=== PATIENT | female | born 1935 | race Caucasian/White ===

== ENCOUNTER 2018-10-11 13:33 | Emergency (ER) | payer MEDICARE, OTHER, SELFPAY ==
[2018-10-11 13:33] VITALS: BP 182/103; PULSE 107; RESP 15; TEMP 37.3; O2SAT 97; BMI 21.8
--- NOTE | 2018-10-11 14:19 | ED.VISSUMM ---
- ER Visit Summary Date of Service: 10/11/18 Chief Complaint: [] blood per rectum while having urination and diarrhea History of Present Illness: The patient is a 83 F [] woke in usual state of health has history of cardiovascular disorder cardiac valve disease, aortic dissection with which she was called to shield around her aorta hepatitis B all of her health conditions have been stable she took Lasix she went to the bathroom to urinate she also had diarrhea this morning and when she was having diarrhea she noticed some blood per rectum, she packed her rectum the bleeding has stopped and she presents for evaluation, she has prior hemorrhoid surgery x2 she is never had a colonoscopy because she does not want one she is never vomited blood, no anticoagulants no history of GI bleeding, her hep B status is stable related to prior blood transfusions Physical Examination: [] 180/100 afebrile General, no distress resting comfortably HEENT is generally unremarkable The neck is supple no adenopathy Cardiovascular, regular rate and rhythm Lungs, clear bilateral Abdomen, soft nontender rectal shows brown stool nontender there is some dried blood over the buttocks but no active bleeding, the vaginal area shows no active bleeding or signs of old blood she assures me that was rectal bleeding not bleeding and she cannot reproduce the bleeding now Extremities, no clubbing cyanosis or edema Neurologic, awake alert answering questions appropriately moving all 4 extremities Test Results: [] Emergency Department Course and Treatment: [] All the above will obtain screening labs she assures me she is not bleeding now and I cannot identify any source of bleeding Treatment Plan: [] Screening labs unremarkable, during her stay in the emerge from there is been no further bleeding she actually went to the bathroom and use the restroom without any difficulty whatsoever she wants to go home we again discussed the concept of colonoscopy bleeding, colon cancer, she is absolutely not interested not saying that she has had extensive cardiovascular surgery and does not wish to have any further procedures Disposition: [] Home stable Impression: [] Rectal bleeding resolved This note was generated with [employer] dictation software. It may contain incorrect words, spelling, and punctuation that were not noted in review of the chart prior to signing ED Disposition - Plan for ED Patient: Referrals: Porfirio Osei MD [COURTESY STAFF PHYSICIAN] -
[2018-10-11 14:38] LABS: Absolute Lymphocyte Count 1.23 X10^3/ul (0.83-4.51); Absolute Neutrophil Count 3.2 X10^3/uL (2.0-7.7); Basophil# 0.04 X10^3/uL; Basophil% 0.9 % (0-1); Eosinophil# 0.27 X10^3/uL; Eosinophils% 5.8 % (0-5); Hematocrit 37.5 % (37-47); Hemoglobin 13.1 g/dl (12.0-15.0); Lymphocyte # 1.23 X10^3/ul (4.0); Lymphocyte % 26.2 % (19-41); Mean Corp Hgb Conc 34.9 g/gl (32-36); Mean Corpuscular Hgb 31.4 pg (27.0-32.0); Mean Corpuscular Volume 89.9 fL (81-99); Mean Platelet Vol. 10.3 fl (6.2-12.0); Neutrophil # 3.15 X10^3/uL (2.7-7.7); Neutrophil % 67.1 % (47-70); POSITIVE COUNT NO; POSITIVE DIFFERENTIAL NO; POSITIVE MORPHOLOGY NO; Platelet Count 140 K/mm3 (150-450); RBC Distribution Width CV 13.3 % (11.6-14.6); RBC Distribution Width SD 43.4 fl (35.1-43.9); Red Blood Count 4.17 M/mm3 (4.2-5.4); White Blood Count 4.7 K/mm3 (4.4-11.0)
[2018-10-11 14:50] LABS: International Normalized Ratio 1.1; Prothrombin Time (Protime)PT. 14.4 SECONDS (11.7-14.9)
[2018-10-11 14:53] LABS: AST(SGOT) 42 U/L (15-37); Alanine Aminotransfer ALT/SGPT 39 U/L (13-56); Albumin, Serum 4.6 g/dL (3.2-5.0); Alkaline Phosphatase 79 U/L (45-117); Anion Gap 6 (5-15); BUN 25 mg/dL (7-18); BUN/Creat Ratio 19.8 RATIO (10-20); Bilirubin, Direct 0.21 mg/dL (0.00-0.30); Calcium,Total 9.2 mg/dL (8.5-10.1); Chloride 94 mmol/L (98-107); Creatinine, Serum 1.26 mg/dL (0.55-1.02); EST Glomerular Filtration Rate 43 mL/min (>60); Est Glom Filt Rate - Afr Amer 52 mL/min (>60); Estimated Creatinine Clearance 32.78 ml/min; Globulin 2.7 g/dL (2.2-4.2); Glucose 88 mg/dL (74-106); Potassium 4.1 mmol/L (3.5-5.1); Protein, Total 7.3 g/dL (6.4-8.2); Sodium Level 132 mmol/L (136-145)
--- NOTE | 2018-10-11 15:06 | ED.DEP ---
ED Disposition - Plan for ED Patient: Instructions: ED Hemorrhoids, ED Hematochezia Stable Referrals: Porfirio Osei MD [COURTESY STAFF PHYSICIAN] -
[2018-10-11 15:15] VITALS: BP 156/73; PULSE 92; RESP 16; O2SAT 97
== END 2018-10-11 15:20 | disposition home or self-care (01) ==
LOC: ED 14:40
PROVIDERS: Emergency Provider Emergency Medicine; Family Provider Nurse Practitioner Family; PCP Nurse Practitioner Family
DX: K62.5 Hemorrhage of anus and rectum (principal); B19.10 Unspecified viral hepatitis B without hepatic coma
CPT/HCPCS: 80048; 80076; 85025; 85610; 96360; 99283; J7040

== ENCOUNTER 2018-10-26 18:15 | Emergency (ER) | payer MEDICARE, OTHER, SELFPAY ==
[2018-10-26 18:18] VITALS: BP 165/81; PULSE 106; RESP 18; TEMP 36.7; O2SAT 94; BMI 22.3
[2018-10-26 19:44] LABS: Partial Thromboplast Time 30.7 Seconds (24.1-36.2); Prothrombin Time (Protime)PT. 13.1 SECONDS (11.7-14.9)
[2018-10-26 19:48] LABS: Anion Gap 7 (5-15); BUN 39 mg/dL (7-18); BUN/Creat Ratio 28.3 RATIO (10-20); Chloride 93 mmol/L (98-107); Creatinine, Serum 1.38 mg/dL (0.55-1.02); EST Glomerular Filtration Rate 39 mL/min (>60); Est Glom Filt Rate - Afr Amer 47 mL/min (>60); Estimated Creatinine Clearance 28.77 ml/min; Glucose 115 mg/dL (74-106); Potassium 4.3 mmol/L (3.5-5.1); Sodium Level 125 mmol/L (136-145)
[2018-10-26 19:51] LABS: Absolute Lymphocyte Count 0.27 X10^3/ul (0.83-4.51); Absolute Neutrophil Count 6.1 X10^3/uL (2.0-7.7); Hematocrit 34.5 % (37-47); Hemoglobin 11.9 g/dl (12.0-15.0); Lymphocyte # 0.27 X10^3/ul (4.0); Mean Corp Hgb Conc 34.5 g/gl (32-36); Mean Corpuscular Hgb 31.2 pg (27.0-32.0); Mean Corpuscular Volume 90.3 fL (81-99); Mean Platelet Vol. 11.4 fl (6.2-12.0); Monocyte% 4.5 % (0-10); Neutrophil # 6.08 X10^3/uL (2.7-7.7); Neutrophil % 90.9 % (47-70); Platelet Count 152 K/mm3 (150-450); RBC Distribution Width CV 13.4 % (11.6-14.6); Red Blood Count 3.82 M/mm3 (4.2-5.4); White Blood Count 6.7 K/mm3 (4.4-11.0)
[2018-10-26 19:52] LABS: Differential Indicated SCAN CRITERIA MET; POSITIVE COUNT NO; POSITIVE DIFFERENTIAL YES; POSITIVE MORPHOLOGY NO
[2018-10-26 20:23] LABS: Differential Comment SCANNED
--- NOTE | 2018-10-26 21:42 | ED.VISSUMM ---
- ER Visit Summary Date of Service: 10/26/18 Chief Complaint: Left leg bruising History of Present Illness: The patient is a 83 F who presents with bruising to her left leg that has been getting worse over the past few days. Patient states she does have some pain with palpation to the lateral aspect of her left leg. Patient denies any paresthesias or weakness. Patient denies any other pain. Patient denies any pain with ambulation. Patient denies any trauma or injury. Patient denies any fevers or chills. Physical Examination: Vital signs are stable. Patient is afebrile. Patient is in no acute distress. Oral mucosa is pink and moist. Neck is supple. Trachea is midline. There is no JVD noted. Musculoskeletal exam reveals ecchymosis over the left lower leg and left knee area. There is some mild tenderness on the lateral aspect of the left lower leg. There is no bony crepitance or step-off. There is full range of motion. Patient is able to ambulate without difficulty. Sensation was intact to light touch in all digits. Capillary refill was less than 2 seconds in all digits. Pedal pulses are equal bilateral. There is no pallor noted. Test Results: CBC showed a mild anemia with a hemoglobin of 11.9. Basic metabolic profile showed a sodium of 125 and chloride of 93. Patient states these are always low. I was going to order a liter of normal saline however the patient refused. INR was 1.0. Emergency Department Course and Treatment: Patient was advised of her test results. Patient was instructed to elevate her left leg. Patient was instructed to follow-up with her primary care physician in 5 to 7 days. Patient understood and was agreeable with the plan. All questions were answered. Disposition: Discharge home Impression: Left leg ecchymosis This note was generated with [employer] dictation software. It may contain incorrect words, spelling, and punctuation that were not noted in review of the chart prior to signing ED Disposition - Plan for ED Patient: Disposition: Home or Assisted Living Diagnosis: Spontaneous ecchymosis Instructions: ED Contusion Soft Tissue Referrals: Juhi Pope NP-C [Primary Care Provider] - 5-7 Days
--- NOTE | 2018-10-26 21:46 | ED.DCSUM_ITS ---
- ER Visit Summary Date of Service: 10/26/18 Chief Complaint: Left leg bruising History of Present Illness: The patient is a 83 F who presents with bruising to her left leg that has been getting worse over the past few days. Patient states she does have some pain with palpation to the lateral aspect of her left leg. Patient denies any paresthesias or weakness. Patient denies any other pain. Patient denies any pain with ambulation. Patient denies any trauma or injury. Patient denies any fevers or chills. Physical Examination: Vital signs are stable. Patient is afebrile. Patient is in no acute distress. Oral mucosa is pink and moist. Neck is supple. Trachea is midline. There is no JVD noted. Musculoskeletal exam reveals ecchymosis over the left lower leg and left knee area. There is some mild tenderness on the lateral aspect of the left lower leg. There is no bony crepitance or step- off. There is full range of motion. Patient is able to ambulate without difficulty. Sensation was intact to light touch in all digits. Capillary refill was less than 2 seconds in all digits. Pedal pulses are equal bilateral. There is no pallor noted. Test Results: CBC showed a mild anemia with a hemoglobin of 11.9. Basic metabolic profile showed a sodium of 125 and chloride of 93. Patient states these are always low. I was going to order a liter of normal saline however the patient refused. INR was 1.0. Emergency Department Course and Treatment: Patient was advised of her test results. Patient was instructed to elevate her left leg. Patient was instructed to follow-up with her primary care physician in 5 to 7 days. Patient understood and was agreeable with the plan. All questions were answered. Disposition: Discharge home Impression: Left leg ecchymosis This note was generated with [employer] dictation software. It may contain incorrect words, spelling, and punctuation that were not noted in review of the chart prior to signing ED Disposition - Plan for ED Patient: Disposition: Home or Assisted Living Diagnosis: Spontaneous ecchymosis Instructions: ED Contusion Soft Tissue Referrals: Juhi Pope NP-C [Primary Care Provider] - 5-7 Days
[2018-10-26 22:00] VITALS: BP 136/86; PULSE 86; RESP 16; O2SAT 98
--- NOTE | 2018-10-26 22:01 | ED.RN ---
IV site removed. Dressing placed. Bleeding and bruising noted around site. New dressing placed on patient. Wrap applied with presser at this time. Bleeding controlled now
== END 2018-10-26 22:05 | disposition home or self-care (01) ==
PROVIDERS: Emergency Provider Emergency Medicine; Family Provider Nurse Practitioner Family; PCP Nurse Practitioner Family
DX: R23.3 Spontaneous ecchymoses (principal)
CPT/HCPCS: 80048; 85025; 85610; 85730; 99283; A4216

== ENCOUNTER 2018-11-14 11:17 | Emergency (ER) | payer MEDICARE, OTHER, SELFPAY ==
[2018-11-14] VITALS (10 sets, daily range): BP systolic 117–191; BP diastolic 74–95; PULSE 88–115; RESP 13–26; TEMP 36.7; O2SAT 96–99; BMI 23.2
--- NOTE | 2018-11-14 11:30 | EKG12_ITS ---
Test Reason : ABNL PAIN Blood Pressure : / mmHG Vent. Rate : 096 BPM Atrial Rate : 090 BPM P-R Int : 000 ms QRS Dur : 126 ms QT Int : 372 ms P-R-T Axes : 000 -64 087 degrees QTc Int : 469 ms Atrial fibrillation Left axis deviation Left ventricular hypertrophy with QRS widening Cannot rule out Septal infarct , age undetermined Abnormal ECG Confirmed by KATHLEEN ERNANDEZ ([id number]), editor book AKBAR WHALEN ([id number]) on 11/22/2018 9:23:29 AM Referred By: Ant Allen Confirmed By:KATHLEEN ERNANDEZ
[2018-11-14] MEDS: Esmolol 2,500 MG/250 ML IV.SOLN. 18.99 MG CONT INF (11:41)
[2018-11-14] MEDS: Ondansetron 4 MG/2 ML Vial IV (11:43)
[2018-11-14] MEDS: Morphine 4 MG/ML Syringe IV (11:43)
[2018-11-14 11:47] LABS: Absolute Lymphocyte Count 0.84 X10^3/ul (0.83-4.51); Absolute Neutrophil Count 4.8 X10^3/uL (2.0-7.7); Basophil# 0.03 X10^3/uL; Basophil% 0.4 % (0-1); Eosinophil# 0.35 X10^3/uL; Eosinophils% 5.2 % (0-5); Hematocrit 32.4 % (37-47); Hemoglobin 10.8 g/dl (12.0-15.0); Lymphocyte # 0.84 X10^3/ul (4.0); Lymphocyte % 12.6 % (19-41); Mean Corp Hgb Conc 33.3 g/gl (32-36); Mean Corpuscular Hgb 32.1 pg (27.0-32.0); Mean Corpuscular Volume 96.4 fL (81-99); Mean Platelet Vol. 11.3 fl (6.2-12.0); Monocyte# 0.66 X10^3/uL; Monocyte% 9.9 % (0-10); Neutrophil # 4.77 X10^3/uL (2.7-7.7); Neutrophil % 71.6 % (47-70); Platelet Count 147 K/mm3 (150-450); RBC Distribution Width CV 15.9 % (11.6-14.6); RBC Distribution Width SD 52.6 fl (35.1-43.9); Red Blood Count 3.36 M/mm3 (4.2-5.4); White Blood Count 6.7 K/mm3 (4.4-11.0)
[2018-11-14 11:48] LABS: POSITIVE COUNT NO; POSITIVE DIFFERENTIAL NO; POSITIVE MORPHOLOGY NO
--- NOTE | 2018-11-14 11:58 | ED.RN ---
FAMILY AND PATIENT VERY ADAMANT THAT PT IS A DO NOT RESUSCITATE. OBTAINING COPIES FROM FAMILY PHYSICIAN.
[2018-11-14 12:19] LABS: ALB/GLOB Ratio 1.4 RATIO (0.9-2.4); AST(SGOT) 38 U/L (15-37); Alanine Aminotransfer ALT/SGPT 30 U/L (13-56); Albumin, Serum 3.8 g/dL (3.2-5.0); Alkaline Phosphatase 77 U/L (45-117); Anion Gap 6 (5-15); BUN 19 mg/dL (7-18); BUN/Creat Ratio 18.3 RATIO (10-20); Calcium,Total 8.9 mg/dL (8.5-10.1); Chloride 98 mmol/L (98-107); Creatinine, Serum 1.04 mg/dL (0.55-1.02); EST Glomerular Filtration Rate 54 mL/min (>60); Est Glom Filt Rate - Afr Amer 65 mL/min (>60); Estimated Creatinine Clearance 38.18 ml/min; Globulin 2.8 g/dL (2.2-4.2); Glucose 81 mg/dL (74-106); Potassium 3.6 mmol/L (3.5-5.1); Protein, Total 6.6 g/dL (6.4-8.2); Sodium Level 133 mmol/L (136-145)
[2018-11-14 12:23] LABS: Partial Thromboplast Time 32.3 Seconds (24.1-36.2); Prothrombin Time (Protime)PT. 13.4 SECONDS (11.7-14.9)
--- NOTE | 2018-11-14 12:40 | ED.VISSUMM ---
- ER Visit Summary Date of Service: 11/14/18 Chief Complaint: Left leg swollen and bruised History of Present Illness: The patient is a [address] Pope and Dr. Allen. She reports that her left leg has been bruised and swollen since October 26. States that she has an aching pain that is mild currently and severe with walking. Is relieved by elevation. She denies any injury to the area. She states that she had a Doppler that was negative and followed up with Dr. Allen yesterday for further evaluation. She was sent for a CTA of the chest today which showed a dissection and she was sent to the emergency department for stabilization and transfer. Patient reports that she does have a history of a thoracic aortic aneurysm repair and dissection in 1996. This was done at [facility]. She reports that this did extend up into her carotids. She is unsure how far this went inferiorly. Patient denies any chest or abdominal pain. She denies any numbness or weakness in her leg. She has had no fever or chills. Physical Examination: Vitals: 98.1, 191/95, 115, 16, 97% on room air which is not hypoxic. General: Well-nourished and well-developed. Head: Normocephalic atraumatic. Neck: Supple, no lymphadenopathy. No JVD. Nontender. Cardiovascular: Tachycardic irregular rhythm with a 2 out of 6 systolic murmur Respiratory: No respiratory distress. Clear to auscultation bilaterally. Abdominal: Soft, nontender, nondistended, normal bowel sounds. No guarding, rebound, or peritoneal signs. Back: Nontender. Extremities: 3+ edema of her left leg and ecchymosis that extends from her toes all the way up to the mid thigh. I am unable to palpate a dorsalis pedis pulse bilaterally. However, she has normal sensation light touch. Her left leg is not cold. Skin: Normal color, no rash. Neurologic: Alert and oriented ?3. Cranial nerves II through XII are intact. Normal strength and sensation. Psych: Normal affect. Test Results: EKG is A. fib at 96 with no ischemic changes. CBC shows an H&H of 10.8 and 32.4, platelets of 147, segmented neutrophils of 73, lymphocytes of 13. Chem-7 shows a sodium 133, BUN of 19, creatinine 1.04. LFTs showed a total bili 1.1 and AST of 38. Coags are normal. CT was read as a [place] type a dissecting aneurysm that has progressed compared to prior study. Thrombosis of the left common iliac artery. Emergency Department Course and Treatment: Patient was given a dose of morphine to help bring her blood pressure down. Again she denied pain. She was started on esmolol and nitrite IV. Treatment Plan: The patient was discussed with Dr. Johnson, at [facility]. We did discuss the possibility of a acute on chronic dissection. He does not want her anticoagulated at this time. He would like her heart rate to be as low as we can get it. He would like us to aim for a systolic blood pressure of 140. The patient will be transferred by air to [facility] for further evaluation and treatment. I did discuss with her that if she has an ischemic leg and/or an aortic dissection that this could require immediate surgery and I feel that there is urgency that does require air transport. Disposition: Transferred in improved condition. Impression: 1. Aortic dissection. 2. Atrial fibrillation with RVR. 3. Critical care time 30 minutes. This note was generated with [employer] dictation software. It may contain incorrect words, spelling, and punctuation that were not noted in review of the chart prior to signing ED Disposition - Plan for ED Patient: Referrals: Juhi Pope NP-C [Primary Care Provider] -
--- NOTE | 2018-11-14 12:45 | ED.DCSUM_ITS ---
- ER Visit Summary Date of Service: 11/14/18 Chief Complaint: Left leg swollen and bruised History of Present Illness: The patient is a [address] Pope and Dr. Allen. She reports that her left leg has been bruised and swollen since October 26. States that she has an aching pain that is mild currently and severe with walking. Is relieved by elevation. She denies any injury to the area. She states that she had a Doppler that was negative and followed up with Dr. Allen yesterday for further evaluation. She was sent for a CTA of the chest today which showed a dissection and she was sent to the emergency department for stabilization and transfer. Patient reports that she does have a history of a thoracic aortic aneurysm repair and dissection in 1996. This was done at [facility]. She reports that this did extend up into her carotids. She is unsure how far this went inferiorly. Patient denies any chest or abdominal pain. She denies any numbness or weakness in her leg. She has had no fever or chills. Physical Examination: Vitals: 98.1, 191/95, 115, 16, 97% on room air which is not hypoxic. General: Well-nourished and well-developed. Head: Normocephalic atraumatic. Neck: Supple, no lymphadenopathy. No JVD. Nontender. Cardiovascular: Tachycardic irregular rhythm with a 2 out of 6 systolic murmur Respiratory: No respiratory distress. Clear to auscultation bilaterally. Abdominal: Soft, nontender, nondistended, normal bowel sounds. No guarding, rebound, or peritoneal signs. Back: Nontender. Extremities: 3+ edema of her left leg and ecchymosis that extends from her toes all the way up to the mid thigh. I am unable to palpate a dorsalis pedis pulse bilaterally. However, she has normal sensation light touch. Her left leg is not cold. Skin: Normal color, no rash. Neurologic: Alert and oriented ?3. Cranial nerves II through XII are intact. Normal strength and sensation. Psych: Normal affect. Test Results: EKG is A. fib at 96 with no ischemic changes. CBC shows an H&H of 10.8 and 32.4, platelets of 147, segmented neutrophils of 73, lymphocytes of 13. Chem-7 shows a sodium 133, BUN of 19, creatinine 1.04. LFTs showed a total bili 1.1 and AST of 38. Coags are normal. CT was read as a [place] type a dissecting aneurysm that has progressed compared to prior study. Thrombosis of the left common iliac artery. Emergency Department Course and Treatment: Patient was given a dose of morphine to help bring her blood pressure down. Again she denied pain. She was started on esmolol and nitrite IV. Treatment Plan: The patient was discussed with Dr. Johnson, at [facility]. We did discuss the possibility of a acute on chronic dissection. He does not want her anticoagulated at this time. He would like her heart rate to be as low as we can get it. He would like us to aim for a systolic blood pressure of 140. The patient will be transferred by air to [facility] for further evaluation and treatment. I did discuss with her that if she has an ischemic leg and/or an aortic dissection that this could require immediate surgery and I feel that there is urgency that does require air transport. Disposition: Transferred in improved condition. Impression: 1. Aortic dissection. 2. Atrial fibrillation with RVR. 3. Critical care time 30 minutes. This note was generated with [employer] dictation software. It may contain incorrect words, spelling, and punctuation that were not noted in review of the chart prior to signing ED Disposition - Plan for ED Patient: Referrals: Juhi Pope NP-C [Primary Care Provider] -
== END 2018-11-14 13:01 | disposition short-term general hospital (02) ==
PROVIDERS: Emergency Provider Emergency Medicine; Family Provider Nurse Practitioner Family; PCP Nurse Practitioner Family
DX: I71.00 Dissection of unspecified site of aorta (principal); I71.6 Thoracoabdominal aortic aneurysm, without rupture; I48.91 Unspecified atrial fibrillation; J44.9 Chronic obstructive pulmonary disease, unspecified; I10 Essential (primary) hypertension; Z86.73 Personal history of transient ischemic attack (TIA), and cerebral infarction without residual deficits; Z79.51 Long term (current) use of inhaled steroids; Z79.899 Other long term (current) drug therapy
CPT/HCPCS: 71275; 80053; 85025; 85610; 85730; 93005; 96365; 96366; 96368; 96375; 99285; J7040; Q9967; A4216; J2405

== ENCOUNTER → 2018-11-14 | Outpatient (CLI) | payer MEDICARE, OTHER, SELFPAY ==
[2018-10-26 18:18] VITALS: BMI 22.3
--- NOTE | 2018-11-14 09:42 | CT_ITS ---
STUDY: CTA CHEST REASON FOR EXAM: Female, 83 years old. History of thoracic aortic aneurysm. Swelling of the left foot. RADIATION DOSAGE (If Supplied By Facility): CTDIvol = ( 19.59 ) mGy, DLP = ( 374.16 ) mGycm TECHNIQUE: The examination was performed with the intravenous administration of 75CC IV Isovue 370. Post-processing of the angiographic images was performed, with multiplanar reformation and 3D reconstruction. Individualized dose optimization techniques were used for this CT. COMPARISON: Comparison is made with prior examination date February 23, 2005. FINDINGS: Normal enhancement of the main pulmonary artery and right and left pulmonary arteries. Normal enhancement of the bilateral peripheral pulmonary arteries. There is no demonstrated pulmonary embolism. There is evidence of a [place] type A aortic dissection arising from the distal portion of the descending thoracic aorta down to the abdomen. There is evidence of dissection into the right brachiocephalic artery and subclavian vein. There is evidence of a false and true lumen with opacification. The aortic arch is dilated measuring 5.6 cm in transverse dimension. This has progressed as compared to prior study. There is evidence of a thrombus within the aneurysmal dilatation. There is dense calcification of the wall. There is evidence of prior surgical repair. There is dilatation of the descending thoracic aorta measuring 4.1 cm in transverse dimension. There is opacification of the true and false lumina. The dissection extends into the abdominal aorta and iliac arteries. The right common iliac artery is occluded. Normal heart and pericardium. Normal mediastinum. Normal hilar regions. Normal visualized trachea and bronchi. The lungs are well expanded. Mild degree of emphysematous changes. Normal pleura. Normal chest wall structures. There are degenerative changes of thoracic spine. Multiple gallstones. Atrophy of the right kidney. 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 This has progressed as compared to prior study. 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 Electronically Signed: Thong Almaraz, at 10:49 EDT , Service support ,
== END | disposition home or self-care (01) ==
LOC: CT 09:36
PROVIDERS: Family Provider Nurse Practitioner Family; PCP Nurse Practitioner Family; Referring Provider Internal Medicine Hematology & Oncology; Visit Provider Internal Medicine Hematology & Oncology
DX: I71.6 Thoracoabdominal aortic aneurysm, without rupture (principal)
CPT/HCPCS: 71275; Q9967; A4216

== ENCOUNTER 2020-05-24 09:53 | Emergency (ER) | payer MEDICARE, OTHER, SELFPAY ==
[2018-11-14 11:18] VITALS: BMI 23.2
[2020-05-24 09:55] VITALS: BP 144/75; PULSE 105; RESP 20; TEMP 36.6; O2SAT 98; BMI 22.1
--- NOTE | 2020-05-24 10:16 | RAD_ITS ---
STUDY: X-RAY CHEST REASON FOR EXAM: Female, 85 years old. hx of COPD, some coughing TECHNIQUE: Single AP portable view of the chest. COMPARISON: CTA chest dated 11/14/2018 FINDINGS: There is hyperinflation of the lungs consistent with chronic obstructive lung disease (COPD). Lungs are clear. There is no demonstrated pleural abnormality. Sternal cerclage wires are present from a prior sternotomy. Mild cardiomegaly. Normal mediastinum and kendy. Normal visualized pulmonary arteries. Tortuous aorta with fusiform aneurysm of the aortic knob. Normal visualized thoracic spine. Normal visualized ribs, clavicles, and shoulders. There is no demonstrated abnormality of the visualized soft tissue structures of the upper abdomen. RAD/Chest 1 View (Portable) IMPRESSION: COPD without acute cardiopulmonary disease. Electronically Signed: Jasapl Henry DO at 11:17 EST Tel , Service support ,
--- NOTE | 2020-05-24 10:16 | EKG12_ITS ---
Test Reason : COUGH Blood Pressure : / mmHG Vent. Rate : 100 BPM Atrial Rate : 125 BPM P-R Int : 000 ms QRS Dur : 122 ms QT Int : 364 ms P-R-T Axes : 000 -68 087 degrees QTc Int : 469 ms Atrial fibrillation Left anterior fascicular block Left ventricular hypertrophy with QRS widening Anteroseptal infarct , age undetermined Abnormal ECG Confirmed by DESHAUN ARRIAGA MD ([id number]), telegraph editor AKBAR WHALEN ([id number]) on 05/26/2020 9:17:49 AM Referred By: SANDY Confirmed By:DESHAUN ARRIAGA MD
--- NOTE | 2020-05-24 10:19 | ED.VIS.GEN ---
History of Present Illness Chief Complaint: Cough Informant: Patient Narrative: 85-year-old female with history of hypertension, COPD, CHF presenting with some dyspnea. She states that she was exposed to someone with Covid at [facility] 1 week ago. He states he has had a fever of 98 however her temperature is usually 95. She did not have any loss of taste or smell. She has no body aches. She has a dry slight cough. She has some slight dyspnea. She has no lower extremity swelling. She denies having any chest pain. On physical exam her lungs are clear to auscultation and there is no wheezing. She has good air movement. She does not have any chest pain but because of the dyspnea I did obtain an EKG. This shows A. fib at 100 bpm. She states she did not know she had a history of atrial fibrillation although she has a EKG from November 14, 2018 which shows A. fib. When resting her heart rate is around 80. She states she does not know why she is not on a blood thinner, however on researching her she has history of aortic dissection and carotid dissections. Lab work does show that she is leukopenic and lymphopenic however she is always in this range. She has acute on chronic kidney disease as well. She states that her doctor keeps talking to her about her kidneys but she does not have time to see her on a regular basis. When I asked what her problem with her kidneys as she says I do not know. Troponin was negative. Electrolytes are normal. She had a D-dimer of greater than 3 so I did CTA her chest and gave her IV fluids. The CTA of the chest is documented above and there are no acute findings. She is Covid negative. I spoke with Evgeny Villavicencio who is on-call for Ju[facility] Samuel nurse practitioner. I recommended that she get close follow-up for her kidneys. He stated to have her call the office tomorrow. I did review all the findings with him and he felt comfortable sending her home as well. Impression: 1. Dyspnea 2. Cough 3. Acute on chronic renal disease Past Medical History - Allergies and Home Meds Allergies/Adverse Reactions: Allergies atenolol Allergy (Verified 05/24/20 09:57) Unknown cephalexin [From Keflex] Allergy (Verified 05/24/20 09:57) Unknown ciprofloxacin [From Cipro] Allergy (Verified 05/24/20 09:57) Unknown fluticasone [From Advair Diskus] Allergy (Verified 05/24/20 09:57) Hives Penicillins [PCN] Allergy (Verified 05/24/20 09:57) Unknown salmeterol [From Advair Diskus] Allergy (Verified 05/24/20 09:57) Hives Primary Care Physician: Juhi Pope CLINICAL OFFICE TECHNICIAN, CLINICAL OFFICE TECHNICIAN-C [Primary Care Provider] - Prior records reviewed: Yes Past Medical History: - - COPD, CHF, hypertension, osteoporosis Surgical History: noncontributory Lives: Alone Smoking Status: Never smoker Alcohol: None Drugs: None Review of Systems General: Denies: Chills, Fever, Sweats Eyes: Denies: Visual changes - bilaterally, Diplopia ENT: Denies: Rhinorrhea, Sore throat Cardiovascular: Denies: Chest pain, Palpitations Respiratory: Reports: Dyspnea, Cough. Denies: Sputum Gastrointestinal: Denies: Abdominal pain, Nausea, Vomiting Genitourinary: Denies: Dysuria, Hematuria Musculoskeletal: Denies: Myalgias, Arthralgias Skin: Denies: Rash, Abscess Neurological: Denies: Headache, Parasthesia, Numbness Psych: Denies: Depression, Anxiety Physical Exam Vital Signs/Narrative: Vital Signs Temp Pulse Resp BP Pulse Ox 05/24/20 09:55 97.9 F 105 H 20 H 144/75 H 98 Inital Vital Signs reviewed: Yes General: No Acute Distress Eyes: Perrl, EOMI. Negative for: Pale conjunctiva ENT: Moist mucous membranes, No rhinorrhea Cardiovascular: Regular rate, Regular rhythm Abdomen: Soft, Nontender, Nondistended Extremities: Nontender, No edema Skin: Normal color, No rash. Negative for: Cyanosis Neurological: Alert, Oriented x3 Psychological: Normal affect, Normal Mood Diagnostic/Tx/Re-eval Clinical Impression(s) from Imaging Studies Chest X-Ray 05/24/20 10:16 IMPRESSION: COPD without acute cardiopulmonary disease. Electronically Signed: Jaspal Henry DO at 11:17 EST Tel , Service support , Chest CTA 05/24/20 11:35 IMPRESSION: 1. No evidence of pulmonary embolism or acute cardiopulmonary process. 2. 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 Recommend continued Counselor with cardiothoracic surgery as clinically warranted. 3. 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 Electronically Signed: Henrik Castillo, DO at 12:30 EST , Service support , Laboratory Data 05/24/20 05/24/20 05/24/20 10:30 10:30 10:30 WBC 7.5 RBC 3.72 L Hgb 12.2 Hct 34.5 L MCV 92.7 MCH 32.8 H MCHC 35.4 RDW Std Deviation 43.5 RDW Coeff of Carmen 12.8 Plt Count 161 MPV 10.9 Immature Gran % (Auto) 0.500 Neut % (Auto) 78.9 H Lymph % (Auto) 8.0 L Grady % (Auto) 9.5 Eos % (Auto) 2.4 Baso % (Auto) 0.7 Absolute Neuts (auto) 5.9 Absolute Lymphs (auto) 0.60 L Nucleated RBC % 0 Platelet Estimate ADEQUATE RBC Morphology NORM C+C D-Dimer Quant (PE/DVT) 3.05 H* Sodium 131 L Potassium 3.6 Chloride 95 L Carbon Dioxide 30.0 Anion Gap 6 BUN 29 H Creatinine 1.43 H Estim Creat Clear Calc 26.82 Est GFR (MDRD) Af Amer 45 L Est GFR (MDRD) Non-Af 37 L BUN/Creatinine Ratio 20.3 H Glucose 103 Calcium 9.7 Troponin I < 0.015 B-Natriuretic Peptide 05/24/20 10:30 WBC RBC Hgb Hct MCV MCH MCHC RDW Std Deviation RDW Coeff of Carmen Plt Count MPV Immature Gran % (Auto) Neut % (Auto) Lymph % (Auto) Grady % (Auto) Eos % (Auto) Baso % (Auto) Absolute Neuts (auto) Absolute Lymphs (auto) Nucleated RBC % Platelet Estimate RBC Morphology D-Dimer Quant (PE/DVT) Sodium Potassium Chloride Carbon Dioxide Anion Gap BUN Creatinine Estim Creat Clear Calc Est GFR (MDRD) Af Amer Est GFR (MDRD) Non-Af BUN/Creatinine Ratio Glucose Calcium Troponin I B-Natriuretic Peptide 162.6 H - Rhythm Strip Rhythm Strip: A-fib Rate: 100 - EKG Initial EKG Interpretation: Atrial Fibrillation Prior: Unchanged - Medical Decision Making 85-year-old female presenting with shortness of breath. She states she was concerned that she might of contracted Covid?19 from somebody who tested positive at [facility] a week ago. She has not had a fever that she knows of. She has no myalgias. She has no change in taste or smell. She states he has a history of CHF and COPD. ED Disposition - Plan for ED Patient: Disposition: Home or Assisted Living Instructions: ED Dyspnea, Kidney Problems Referrals: Juhi Pope NP, CLINICAL OFFICE TECHNICIAN-C [Primary Care Provider] -
[2020-05-24 10:39] VITALS: BP 126/75; PULSE 102; RESP 20; TEMP 36.6; O2SAT 95
[2020-05-24 10:41] LABS: Absolute Neutrophil Count 5.9 X10^3/uL (2.0-7.7); Basophil# 0.05 X10^3/uL; Basophil% 0.7 % (0-1); Differential Indicated SCAN CRITERIA MET; Eosinophil# 0.18 X10^3/uL; Eosinophils% 2.4 % (0-5); Hematocrit 34.5 % (37-47); Hemoglobin 12.2 g/dL (12.0-15.0); Mean Corp Hgb Conc 35.4 g/dL (32-36); Mean Corpuscular Hgb 32.8 pg (27.0-32.0); Mean Corpuscular Volume 92.7 fL (81-99); Mean Platelet Vol. 10.9 fl (6.2-12.0); Monocyte# 0.71 X10^3/uL; Monocyte% 9.5 % (0-10); NRBC Flagged by Analyzer 0 % (0-5); Neutrophil # 5.88 X10^3/uL (2.7-7.7); Neutrophil % 78.9 % (47-70); POSITIVE DIFFERENTIAL YES; Platelet Count 161 K/mm3 (150-450); RBC Distribution Width CV 12.8 % (11.6-14.6); RBC Distribution Width SD 43.5 fl (35.1-43.9); Red Blood Count 3.72 M/mm3 (4.2-5.4); White Blood Count 7.5 K/mm3 (4.4-11.0)
[2020-05-24 10:52] LABS: D-Dimer Quantitative (DVT/PE) 3.05 FEU/ug/m (0.27-0.49)
--- NOTE | 2020-05-24 10:55 | NURSING ---
Critical Ddimer reported to Dr. Cruz
[2020-05-24 10:57] LABS: BNP,B-Type NATRIURETIC PEPTIDE 162.6 pg/mL (0-100)
[2020-05-24 10:59] LABS: Anion Gap 6 (5-15); BUN 29 mg/dL (7-18); BUN/Creat Ratio 20.3 RATIO (10-20); Calcium,Total 9.7 mg/dL (8.5-10.1); Chloride 95 mmol/L (98-107); Creatinine, Serum 1.43 mg/dL (0.55-1.02); EST Glomerular Filtration Rate 37 mL/min (>60); Est Glom Filt Rate - Afr Amer 45 mL/min (>60); Estimated Creatinine Clearance 26.82 ml/min; Glucose 103 mg/dL (74-106); Potassium 3.6 mmol/L (3.5-5.1); Sodium Level 131 mmol/L (136-145)
[2020-05-24 11:02] LABS: Platelet Estimate ADEQUATE (ADEQ); Red Cell Morphology NORM C+C NORMAL (NORM C&C)
--- NOTE | 2020-05-24 11:35 | CT_ITS ---
STUDY: CTA CHEST REASON FOR EXAM: Female, 85 years old. COPD/SOB/ELEV DDIMER. Pt had aneurysm and valve repair 1997. Hx of COPD, HTN and emphysema. Did second run for aorta contrast d/t abnormal visualization on first scan RADIATION DOSAGE (If Supplied By Facility): CTDIvol = ( 8.36 ) mGy, DLP = ( 586.90 ) mGycm TECHNIQUE: The examination was performed with the intravenous administration of IV 75mL Isovue-370. Post-processing of the angiographic images was performed, with multiplanar reformation and 3D reconstruction. Individualized dose optimization techniques were used for this CT. COMPARISON: 11/14/2018 FINDINGS: Normal enhancement of the main pulmonary artery and right and left pulmonary arteries. Normal enhancement of the bilateral peripheral pulmonary arteries. There is no demonstrated pulmonary embolism. There is a demonstrated aortic arch aneurysm with peripheral hyperdense component consistent with chronic dissection with overall similar appearance compared to 11/14/2018 examination. The aortic arch diameter measures 5.8 cm in diameter on axial imaging and previously measuring 5.7 cm likely stable and on coronal imaging measuring 6.0 cm impression measuring 5.8 cm. Similar extension of true and false lumen extending to the abdominal aorta is present. 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 The peripheral proximal right common carotid artery aneurysm measures 2.5 cm with similar appearance compared to prior. Dissection also extends into the right subclavian artery proximally similar to prior. There is no demonstrated aortic dissection. Normal heart and pericardium. Normal mediastinum. Normal hilar regions. Normal visualized trachea and bronchi. The lungs are well expanded. Diffuse COPD with centrilobular emphysematous changes present are noted. Normal pleura. Normal chest wall structures. Normal osseous structures. Normal visualized upper abdomen. CT/CTA Chest W/WO Contrast IMPRESSION: 1. No evidence of pulmonary embolism or acute cardiopulmonary process. 2. 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 Recommend continued Counselor with cardiothoracic surgery as clinically warranted. 3. 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 Electronically Signed: Henrik Castillo DO at 12:30 EST , Service support ,
--- NOTE | 2020-05-24 11:58 | NURSING ---
Update given to pt's daughter per pt request as she is waiting in the parking lot
[2020-05-24 12:00] VITALS: BP 135/70; PULSE 87; RESP 20; TEMP 36.6; O2SAT 98
== END 2020-05-24 13:20 | disposition home or self-care (01) ==
PROVIDERS: Emergency Provider Student in an Organized Health Care Education/Training Program; PCP Nurse Practitioner Family
DX: R06.00 Dyspnea, unspecified (principal); R05 Cough; I13.0 Hypertensive heart and chronic kidney disease with heart failure and stage 1 through stage 4 chronic kidney disease, or unspecified chronic kidney disease; N18.9 Chronic kidney disease, unspecified; I50.9 Heart failure, unspecified; J44.9 Chronic obstructive pulmonary disease, unspecified; M81.0 Age-related osteoporosis without current pathological fracture; Z79.899 Other long term (current) drug therapy
CPT/HCPCS: 71045; 71275; 80048; 83880; 84484; 85025; 85379; 87426; 93005; 99284; J7030; Q9967; A4216

== ENCOUNTER 2021-02-02 07:25 | Emergency (ER) | payer MEDICARE, OTHER, SELFPAY ==
[2021-02-02 07:26] VITALS: BP 168/121; PULSE 108; RESP 20; TEMP 36; O2SAT 100; BMI 23.0
--- NOTE | 2021-02-02 07:38 | EKG12_ITS ---
Test Reason : CP Blood Pressure : / mmHG Vent. Rate : 113 BPM Atrial Rate : 111 BPM P-R Int : 000 ms QRS Dur : 108 ms QT Int : 298 ms P-R-T Axes : 000 -75 097 degrees QTc Int : 408 ms Atrial fibrillation Left anterior fascicular block Septal infarct , age undetermined Abnormal ECG Confirmed by ROBIN VALDOVINOS, DI ([id number]), television news video editor AKBAR WHALEN ([id number]) on 02/05/2021 9:18:13 AM Referred By: MARISSA Confirmed By:ISAI KELLY MD
--- NOTE | 2021-02-02 07:38 | RAD_ITS ---
STUDY: X-RAY CHEST REASON FOR EXAM: Female, 85 years old. Chest pain TECHNIQUE: Single AP portable view of the chest. COMPARISON: Comparison is made with prior study dated 05/24/2020. FINDINGS: EKG electrodes are seen. There is hyperinflation of the lungs consistent with chronic obstructive lung disease (COPD). There is no demonstrated pleural abnormality. Sternal cerclage wires and vascular clips are present from a prior sternotomy and coronary artery bypass graft procedure (CABG). Normal mediastinum and kendy. Normal visualized pulmonary arteries. There is atherosclerotic calcification of the aortic arch with tortuosity. Stable aneurysmal dilatation of the aortic arch measuring 6 cm. This is unchanged. Normal visualized thoracic spine. Normal visualized ribs, clavicles, and shoulders. There is no demonstrated abnormality of the visualized soft tissue structures of the upper abdomen. RAD/Chest 1 View (Portable) IMPRESSION: Hyperinflation. There has been no change. Stable aneurysmal dilatation of the aortic arch. Electronically Signed: Thong Almaraz MD at 8:18 EDT , Service support ,
--- NOTE | 2021-02-02 07:40 | EDS_ITS ---
HPI History of Present Illness Chief Complaint: Chest Other Detail of Chief Complaint: Chest pain that started 5 days ago Informant: patient Onset/Context/Timing Current Severity: 9/10 Maximum Severity: 10/10 Worsened By: Movement of Torso and Breathing Relieved By: Nothing Narrative Narrative: Patient presents to the emergency department complaint of pain in her chest that started 5 days ago. Patient states that initially the pain was kind of all over and then mostly on the right side but now seems to have moved more to the left side of her chest. She describes a sharp stabbing pain that at times is worse with movement and breathing. She feels slightly short of breath. Denies any fever cough or recent illness. She denies recent travel or surgery. Patient states she just cannot get comfortable. Patient does have history of asthma, COPD, hypertension, and paroxysmal A. fib. She is not currently antic oagulated. Patient also with prior history of aortic valve replacement and has a bovine valve. No history of PE or DVT. Currently rates her pain a 9 out of 10. Patient states she is had similar pains 5 other times but usually have resolved within a day this time the pain is not gone away. [facility] Medical History (Updated 02/02/21 @ 09:[address] Regla Barrera, DO) AAA (abdominal aortic aneurysm) Aortic dissection Asthma Atrial fibrillation COPD (chronic obstructive pulmonary disease) Renal insufficiency Home Medications albuterol sulfate 2.5 mg INHALATION Q4H PRN PRN 10/26/18 [History Last Taken Unknown] calcium carbonate-vitamin D3 2 ea PO DAILY 10/26/18 [History Last Taken Unknown] flaxseed oil 1,000 mg PO DAILY 10/26/18 [History Last Taken Unknown] fluticasone propionate [Flovent Hfa] 2 puff INHALATION DAILY 10/26/18 [History Last Taken Unknown] furosemide 20 mg PO PRN PRN 10/26/18 [History Last Taken Unknown] losartan 1 tab PO DAILY 10/26/18 [History Last Taken Unknown] magnesium 500 mg PO DAILY 10/26/18 [History Last Taken Unknown] multivitamin [Daily Multiple Vitamin] 1 ea PO DAILY 10/26/18 [History Last Taken Unknown] omega-3 fatty acids-fish oil [Fish Oil 1,000 mg Capsule] 1 ea PO DAILY 10/26/18 [History Last Taken Unknown] potassium chloride 2 tab PO DAILY 10/26/18 [History Last Taken Unknown] triamterene-hydrochlorothiazid 1 cap PO DAILY 10/26/18 [History Last Taken Unknown] aspirin 81 mg PO DAILY 02/02/21 [History Last Taken Unknown] cetirizine [Zyrtec] 10 mg PO DAILY 02/02/21 [History Last Taken Unknown] coenzyme Q10 [Co Q-10] 100 mg PO DAILY 02/02/21 [History Last Taken Unknown] oxycodone-acetaminophen 1 tab PO Q6H PRN PRN 5 Days #20 tablet 02/02/21 [Rx Last Taken Unknown] prednisone 10 mg PO DAILY 02/02/21 [History Last Taken Unknown] Allergy/AdvReac Type Severity Reaction Status Date / Time atenolol Allergy Unknown Verified 02/02/21 07:25 cephalexin [From Keflex] Allergy Unknown Verified 02/02/21 07:25 ciprofloxacin [From Cipro] Allergy Unknown Verified 02/02/21 07:25 fluticasone Allergy Hives Verified 02/02/21 07:25 [From Advair Diskus] Penicillins [PCN] Allergy Unknown Verified 02/02/21 07:25 salmeterol Allergy Hives Verified 02/02/21 07:25 [From Advair Diskus] Social History Smoking Status: Former smoker ROS ROS ED Review of Systems ROS Unobtainable: other Constitutional Constitutional ED: Reports lethargy; Denies chills, fever(s), sweats or weight loss Eyes Eyes: Denies blurry vision, change in vision or diplopia ENT ENT ED: Denies rhinorrhea or sore throat Cardiovascular Cardiovascular: Reports chest pain; Denies orthopnea or racing heartbeat Respiratory/Chest Respiratory/Chest: Reports dyspnea and dyspnea on exertion; Denies cough, orthopnea or sputum Gastrointestinal Gastrointestinal: Denies abdominal pain, diarrhea, nausea or vomiting Genitourinary Genitourinary ED: Denies dysuria, hematuria or urinary frequency Musculoskeletal Musculoskeletal: Denies arthralgias, back pain, myalgias or neck pain Integumentary Denies abscess, Abrasions or rash Neurologic Neurologic: Denies headache(s) or weakness Psychiatric Psychiatric: Denies anxiety, depression or suicidal thoughts Endocrine Endocrinology: Denies polydipsia, polyphagia or polyuria Hematologic/Lymphatic Hematologic/Lymphatic: Denies easy bleeding, easy bruising or lymphadenopathy Allergic/Immunologic Allergic/Immunologic ED: Denies mouth swelling, tongue swelling or urticaria EXAM Physical Exam Const Vital Signs: 02/02/21 07:26 02/02/21 07:35 02/02/21 07:58 Temperature 96.8 F L Temperature Source Temporal Pulse Rate 108 H 94 Respiratory Rate 20 H 12 Respiratory Effort Normal Respiratory Pattern Normal Blood Pressure 168/121 H 170/92 H Blood Pressure Mean 136 118 Pulse Ox 100 100 Oxygen Delivery Method Room Air Room Air 02/02/21 08:30 02/02/21 08:56 Temperature Temperature Source Pulse Rate 87 96 Respiratory Rate 15 19 H Respiratory Effort Respiratory Pattern Blood Pressure 131/79 H 138/60 H Blood Pressure Mean 96 86 Pulse Ox 99 99 Oxygen Delivery Method Room Air Positive well nourished and well developed General Appearance ED: well developed and NAD HEENT Reports TM's clear and moist mucous membranes normocephalic and atraumatic; Negative for trauma or tenderness Tympanic Membrane ED: Yes TM's clear Eyes PERRL and EOMs intact bilaterally General Eye ED: Negative for pale conjunctiva or scleral icterus Neck no lymphadenopathy, supple and no JVD General: Negative for tenderness Chest Wall inspection of chest normal; Negative for palpation of chest normal Chest: tenderness Resp normal respiratory effort and clear to auscultation bilaterally Effort and Inspection: Negative for respiratory distress or pain with movement Auscultation: Negative for rhonchi, wheezes or diminished lung sounds Cardio S1 normal heart sound, S2 normal heart sound and no murmurs; Negative for regular rate or regular rhythm Rate: tachycardic and other Other Details: Irregularly irregular Peripheral Pulses: pulses 2+ throughout GI normal to inspection, nondistended, normoactive bowel sounds, soft to palpation, non-tender, non-distended and no masses Back/Spine no CVA tenderness and no thoracic nor lumbar tenderness Extremity normal to inspection General Extremety ED: Negative for edema General Extremity: Negative for edema Neuro oriented x3, CN's II-XII intact bilaterally, no sensory deficits noted and gait normal Sensorium / Orientation: awake, alert, oriented to person, oriented to place and oriented to time Motor Exam: strength 5/5 throughout and strength abnormal Psych mental status grossly normal Skin no rashes or lesions noted and no wounds MDM MDM MDM Narrative Medical decision making narrative: Results discussed with patient and her daughter. Patient did have good pain relief with 4 mg of morphine. Patient's blood pressure improved into the 130 systolic. She did receive Cardizem also 20 mg IV bolus and her heart rate now in the 80s and 90s. I had a long discussion with patient and with the daughter. Initially I recommended admission for management of her A. fib and hypertension and also given the fact that etiology of her chest pain was unclear. Patient has a chronic type B aortic dissection which has not changed when compared with prior study from May 242019. Patient does not want any type of surgical intervention and states that she just wants to have pain control and be kept comfortable. Patient and daughter do not want to be admitted but would prefer to go home and just manage the pain. Patient stated that if there was anything significant going on with her visit that she just wanted hospice and wanted to be made comfortable. Lab Data Attestation: I reviewed the patient's lab results. Labs: Laboratory Results - last 24 hr 02/02/21 02/02/21 02/02/21 07:52 07:52 07:52 WBC 7.4 RBC 3.97 L Hgb 13.2 Hct 38.5 MCV 97.0 MCH 33.2 H MCHC 34.3 RDW Std Deviation 45.8 H RDW Coeff of Carmen 12.9 Plt Count 173 MPV 10.5 Immature Gran % (Auto) 1.700 H Neut % (Auto) 70.9 H Lymph % (Auto) 14.3 L Bowman % (Auto) 11.7 H Eos % (Auto) 0.7 Baso % (Auto) 0.7 Absolute Neuts (auto) 5.3 Absolute Lymphs (auto) 1.06 Nucleated RBC % 0 D-Dimer Quant (PE/DVT) 1.88 H* Sodium 126 L Potassium 3.8 Chloride 85 L Carbon Dioxide 33.0 H Anion Gap 8 BUN 41 H Creatinine 1.58 H Estim Creat Clear Calc 23.30 Est GFR (MDRD) Af Amer 40 L Est GFR (MDRD) Non-Af 33 L BUN/Creatinine Ratio 25.9 H Glucose 98 Calcium 10.1 Troponin I High Sens 33.3 Radiography Chest X-Ray - ED: 1 View Diagnostic Testing: Radiology Impression Chest X-Ray 02/02/21 07:38 IMPRESSION: Hyperinflation. There has been no change. Stable aneurysmal dilatation of the aortic arch. Electronically Signed: Thong Almaraz MD at 8:18 EDT , Service support , Chest CTA 02/02/21 08:15 IMPRESSION: No evidence of pulmonary embolism. Stable Xenia type B aortic dissection involving the aortic arch as well as the descending thoracic aorta and proximal visualized portion of the abdominal aorta. There is patency of the true lumen as well as the false lumen. There is dilatation of the right ventricle as well as the left atrium. Electronically Signed: Thong Almaraz MD at 9:23 EDT , Service support , 1 view chest x-ray obtained interpreted by myself as dilated aorta otherwise no acute disease process. Radiology in agreement. EKG Initial EKG: Comments: Atrial fibrillation with a rapid ventricular response with a rate of 113 bpm with old septal infarct noted. Prior EKG tracings: available for review Prior: Unchanged Discharge Plan Triage Chief Complaint: Chest Other ED Provider: Regla Barrera Dx/Rx/DC Orders Clinical Impression: Acute chest wall pain Instructions: ED Chest Pain, Uncertain Cause, ED Chest Wall Pain, Costochondritis Prescriptions: New oxycodone-acetaminophen [oxycodone-acetaminophen] 1 TABLET tablet 1 tab PO Q6H PRN PRN (Reason: pain) 5 Days Qty: 20 RF: 0 No Action multivitamin [Daily Multiple] 1 EACH tablet 1 ea PO DAILY RF: 0 albuterol sulfate 2.5 MG/3 ML solution for nebulization 2.5 mg inhalation Q4H PRN PRN (Reason: Sob &/Or Wheezing) RF: 0 triamterene-hydrochlorothiazid 1 CAP capsule 1 cap PO DAILY RF: 0 flaxseed oil 1,000 MG capsule 1,000 mg PO DAILY RF: 0 magnesium 250 MG tablet 500 mg PO DAILY RF: 0 furosemide 20 MG tablet 20 mg PO PRN PRN (Reason: edema) RF: 0 losartan 100 MG tablet 1 tab PO DAILY RF: 0 Flovent HFA 12 GM HFA aerosol inhaler 2 puff inhalation DAILY RF: 0 potassium chloride 10 MEQ tablet 2 tab PO DAILY RF: 0 Fish Oil 1 EACH capsule 1 ea PO DAILY RF: 0 calcium carbonate-vitamin D3 1 EACH tablet 2 ea PO DAILY RF: 0 prednisone 10 mg Tablet 10 mg PO DAILY RF: 0 cetirizine [Zyrtec] 10 mg Tablet 10 mg PO DAILY RF: 0 aspirin 81 mg Tablet 81 mg PO DAILY RF: 0 coenzyme Q10 [Co Q-10] 100 mg Capsule 100 mg PO DAILY RF: 0 Primary Care Provider: Juhi Pope NP Referrals: Juhi Pope NP, OIL FIELD TECHNICIAN-C [Primary Care Provider] - 3-5 Days Disposition Disposition: Home, Self Care
[2021-02-02] MEDS: Morphine 4 MG/ML Syringe IV (07:56)
[2021-02-02] MEDS: Ondansetron 4 MG/2 ML Vial IV (07:56)
[2021-02-02 07:58] VITALS: BP 170/92; PULSE 94; RESP 12; O2SAT 100
[2021-02-02 07:58] LABS: Absolute Lymphocyte Count 1.06 X10^3/uL (0.83-4.51); Absolute Neutrophil Count 5.3 X10^3/uL (2.0-7.7); Basophil# 0.05 X10^3/uL; Basophil% 0.7 % (0-1); Eosinophil# 0.05 X10^3/uL; Eosinophils% 0.7 % (0-5); Hematocrit 38.5 % (37-47); Hemoglobin 13.2 g/dL (12.0-15.0); Lymphocyte # 1.06 X10^3/ul (0.83-4.51); Lymphocyte % 14.3 % (19-41); Mean Corp Hgb Conc 34.3 g/dL (32-36); Mean Corpuscular Hgb 33.2 pg (27.0-32.0); Mean Platelet Vol. 10.5 fl (6.2-12.0); Monocyte# 0.87 X10^3/uL; Monocyte% 11.7 % (0-10); NRBC Flagged by Analyzer 0 % (0-5); Neutrophil # 5.27 X10^3/uL (2.7-7.7); Neutrophil % 70.9 % (47-70); Platelet Count 173 K/mm3 (150-450); RBC Distribution Width CV 12.9 % (11.6-14.6); RBC Distribution Width SD 45.8 fl (35.1-43.9); Red Blood Count 3.97 M/mm3 (4.2-5.4); White Blood Count 7.4 K/mm3 (4.4-11.0)
--- NOTE | 2021-02-02 08:00 | ED.RN ---
hr remainin between 88-94 hold cardizem
[2021-02-02 08:13] LABS: D-Dimer Quantitative (DVT/PE) 1.88 FEU/ug/m (0.27-0.49)
[2021-02-02 08:15] LABS: Anion Gap 8 (5-15); BUN 41 mg/dL (7-18); BUN/Creat Ratio 25.9 RATIO (10-20); Calcium,Total 10.1 mg/dL (8.5-10.1); Chloride 85 mmol/L (98-107); Creatinine, Serum 1.58 mg/dL (0.55-1.02); EST Glomerular Filtration Rate 33 mL/min (>60); Est Glom Filt Rate - Afr Amer 40 mL/min (>60); Glucose 98 mg/dL (74-106); Potassium 3.8 mmol/L (3.5-5.1); Sodium Level 126 mmol/L (136-145); Troponin-I HS 33.3 pg/mL (3.0-53.7)
--- NOTE | 2021-02-02 08:15 | CT_ITS ---
STUDY: CTA CHEST REASON FOR EXAM: Female, 85 years old. Chest pain, elevated d-dimer RADIATION DOSAGE (If Supplied By Facility): CTDIvol = ( 15.6 ) mGy, DLP = ( 239.89 ) mGycm TECHNIQUE: The examination was performed with the intravenous administration of IV 100mL [id number]-370. Post-processing of the angiographic images was performed, with multiplanar reformation and 3D reconstruction. Individualized dose optimization techniques were used for this CT. COMPARISON: Comparison is made with prior examination dated 05/24/2020. FINDINGS: Normal enhancement of the main pulmonary artery and right and left pulmonary arteries. Normal enhancement of the bilateral peripheral pulmonary arteries. There is no demonstrated pulmonary embolism. Once again, there is evidence of a [place] type B dissection of the aortic arch extending through the descending thoracic aorta and proximal aspect of the visualized abdominal aorta. There is patency of a small true lumen anteriorly and partial patency of a focal large false lumen posteriorly. Once again, the aortic arch measures 5.8 cm in transverse dimension. This is essentially unchanged. Stable appearance of the peripheral calcification of the aneurysm. 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 There is a posterior dissection extending into its midportion. 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 Sternal cerclage wires are present from a prior sternotomy. Normal mediastinum. Normal hilar regions. Normal visualized trachea and bronchi. The lungs are well expanded. Normal pulmonary parenchyma. Normal pleura. Normal chest wall structures. There are degenerative changes of thoracic spine. Stable wedging of a mid dorsal vertebrae. Normal visualized upper abdomen. CT/CTA Chest W/WO Contrast IMPRESSION: No evidence of pulmonary embolism. 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 There is patency of the true lumen as well as the false lumen. There is dilatation of the right ventricle as well as the left atrium. Electronically Signed: Thong Almaraz MD at 9:23 EDT , Service support ,
[2021-02-02 08:30] VITALS: BP 131/79; PULSE 87; RESP 15; O2SAT 99
[2021-02-02 08:56] VITALS: BP 138/60; PULSE 96; RESP 19; O2SAT 99
[2021-02-02 09:55] VITALS: BP 134/75; PULSE 90; RESP 18; O2SAT 96
== END 2021-02-02 10:05 | disposition home or self-care (01) ==
PROVIDERS: Emergency Provider Emergency Medicine; PCP Nurse Practitioner Family
DX: R07.89 Other chest pain (principal); J44.9 Chronic obstructive pulmonary disease, unspecified; I10 Essential (primary) hypertension; Z79.51 Long term (current) use of inhaled steroids; Z79.52 Long term (current) use of systemic steroids; Z79.82 Long term (current) use of aspirin; Z79.899 Other long term (current) drug therapy; Z87.891 Personal history of nicotine dependence; Z95.2 Presence of prosthetic heart valve
CPT/HCPCS: 71045; 71275; 80048; 84484; 85025; 85379; 93005; 96374; 96375; 99283; J7030; Q9967; A4216; J2405

== ENCOUNTER 2021-02-07 17:20 | Emergency (ER) | payer MEDICARE, OTHER, SELFPAY ==
[2021-02-07 17:21] VITALS: PULSE 103; RESP 16; TEMP 37; O2SAT 95; BMI 23.8
[2021-02-07] MEDS: Ondansetron 4 MG/2 ML Vial IV (18:29)
[2021-02-07] MEDS: diazePAM 5 MG Tablet 2.5 MG PO ×2 (18:29→20:10)
[2021-02-07] MEDS: Morphine 4 MG/ML Syringe IV (18:29)
--- NOTE | 2021-02-07 19:58 | EDS_ITS ---
HPI History of Present Illness Chief Complaint: Back Narrative Narrative: Patient is a 85-year-old female from home who has a DNR comfort care only status. She was seen a few days ago for the same complaint of back pain and underwent a complete work-up with CTA secondary to history of aortic valve and aortic stent placement. Work-up was negative and patient was discharged home. She states she has been taking oxycodone with minimal symptom improvement. She denies any new trauma or worsening of symptoms but does states the pain has been persistent despite taking the medication and therefore comes in for evaluation [facility] Medical History AAA (abdominal aortic aneurysm) Aortic dissection Asthma Atrial fibrillation COPD (chronic obstructive pulmonary disease) Renal insufficiency Home Medications albuterol sulfate 2.5 mg INHALATION Q4H PRN PRN 10/26/18 [History Last Taken Unknown] calcium carbonate-vitamin D3 2 ea PO DAILY 10/26/18 [History Last Taken Unknown] flaxseed oil 1,000 mg PO DAILY 10/26/18 [History Last Taken Unknown] fluticasone propionate [Flovent Hfa] 2 puff INHALATION DAILY 10/26/18 [History Last Taken Unknown] furosemide 20 mg PO PRN PRN 10/26/18 [History Last Taken Unknown] losartan 1 tab PO DAILY 10/26/18 [History Last Taken Unknown] magnesium 500 mg PO DAILY 10/26/18 [History Last Taken Unknown] multivitamin [Daily Multiple Vitamin] 1 ea PO DAILY 10/26/18 [History Last Taken Unknown] omega-3 fatty acids-fish oil [Fish Oil 1,000 mg Capsule] 1 ea PO DAILY 10/26/18 [History Last Taken Unknown] potassium chloride 2 tab PO DAILY 10/26/18 [History Last Taken Unknown] triamterene-hydrochlorothiazid 1 cap PO DAILY 10/26/18 [History Last Taken Unknown] aspirin 81 mg PO DAILY 02/02/21 [History Last Taken Unknown] cetirizine [Zyrtec] 10 mg PO DAILY 02/02/21 [History Last Taken Unknown] coenzyme Q10 [Co Q-10] 100 mg PO DAILY 02/02/21 [History Last Taken Unknown] oxycodone-acetaminophen 1 tab PO Q6H PRN PRN 5 Days #20 tablet 02/02/21 [Rx Last Taken Unknown] prednisone 10 mg PO DAILY 02/02/21 [History Last Taken Unknown] diazepam [Valium] 5 mg PO TID PRN 5 Days #15 tab 02/07/21 [Rx Last Taken Unknown] fentanyl 1 patch TRANSDERMAL Q72H 15 Days #5 ea 02/07/21 [Rx Last Taken Unknown] oxycodone-acetaminophen [Percocet] 1 tab PO Q6H PRN 3 Days #12 tab 02/07/21 [Rx Last Taken Unknown] Allergy/AdvReac Type Severity Reaction Status Date / Time atenolol Allergy Unknown Verified 02/02/21 07:25 cephalexin [From Keflex] Allergy Unknown Verified 02/02/21 07:25 ciprofloxacin [From Cipro] Allergy Unknown Verified 02/02/21 07:25 fluticasone Allergy Hives Verified 02/02/21 07:25 [From Advair Diskus] Penicillins [PCN] Allergy Unknown Verified 02/02/21 07:25 salmeterol Allergy Hives Verified 02/02/21 07:25 [From Advair Diskus] Social History Smoking Status: Former smoker ROS ROS ED Constitutional Constitutional ED: Denies chills or fever(s) Eyes Eyes: Denies change in vision ENT ENT ED: Denies sore throat Cardiovascular Cardiovascular: Denies chest pain or palpitations Respiratory/Chest Respiratory/Chest: Denies cough or dyspnea Gastrointestinal Gastrointestinal: Denies abdominal pain, nausea or vomiting Genitourinary Genitourinary ED: Denies dysuria Musculoskeletal Musculoskeletal: Reports back pain Integumentary Denies rash Neurologic Neurologic: Denies headache(s) EXAM Physical Exam Const Vital Signs: 02/07/21 17:21 Temperature 98.6 F Temperature Source Temporal Pulse Rate 103 H Respiratory Rate 16 Pulse Ox 95 Oxygen Delivery Method Room Air Positive well nourished and well developed General Appearance ED: well developed Eyes PERRL and EOMs intact bilaterally Neck supple Chest Wall Chest Narrative: No bony deformity or crepitance of the chest wall. Patient has reproducible left back pain along the posterior fourth the sixth rib cage. However there is no secondary soft tissue changes to suggest trauma or infection Resp Resp Narrative: Breath sounds are diminished throughout but overall clear to auscultation with no signs of distress Cardio regular rate and regular rhythm Rate: other Other Details: Patient has a holosystolic grade 3 out of 6 murmur consistent with her cardiac history. Radial pulses are plus 2 out of 4 bilaterally they are equal and symmetric GI GI Narrative: Abdomen is soft and nondistended with hypoactive bowel. No voluntary guarding or rigidity no pulsatile mass Back/Spine Back/Spine Narrative: Changes along the left posterior rib cage as documented above Extremity Extremity Narrative: No asymmetric edema no pitting edema negative Homans' sign bilaterally Neuro oriented x3 and CN's II-XII intact bilaterally Sensorium / Orientation: alert Psych mental status grossly normal Skin no rashes or lesions noted and no wounds MDM MDM MDM Narrative Medical decision making narrative: Patient presented to the ER in no acute distress. She has recently undergone a complete work-up including CTA which revealed no acute findings. I discussed with patient the possibility of repeating blood work and/or imaging studies today. She states that she is a comfort care only and does not want any type of work-up performed but that she would only like her pain controlled. Secondary to this I did not order any labs or images. Patient was given morphine and then Dilaudid and 2 doses of Valium. She states that the medication has helped reduce her pain. Therefore at this time I will place patient on a fentanyl patch with breakthrough oxycodone pills and patient will also be prescribed Valium and she can follow-up with her family doctor to discuss need for palliative care/hospice placement. Discharge Plan Triage Chief Complaint: Back ED Provider: Dalton Liu Dx/Rx/DC Orders Clinical Impression: Acute back pain Instructions: ED Back Sprain/Strain Prescriptions: New diazepam [Valium] 5 mg tablet 5 mg PO TID PRN (Reason: muscle spasm) 5 Days Qty: 15 RF: 0 fentanyl 25 mcg/hr patch 72 hour 1 patch transdermal Q72H 15 Days Qty: 5 RF: 0 oxycodone-acetaminophen [Percocet] 5-325 mg tablet 1 tab PO Q6H PRN (Reason: breakthrough pain) 3 Days Qty: 12 RF: 0 No Action multivitamin [Daily Multiple] 1 EACH tablet 1 ea PO DAILY RF: 0 albuterol sulfate 2.5 MG/3 ML solution for nebulization 2.5 mg inhalation Q4H PRN PRN (Reason: Sob &/Or Wheezing) RF: 0 triamterene-hydrochlorothiazid 1 CAP capsule 1 cap PO DAILY RF: 0 flaxseed oil 1,000 MG capsule 1,000 mg PO DAILY RF: 0 magnesium 250 MG tablet 500 mg PO DAILY RF: 0 furosemide 20 MG tablet 20 mg PO PRN PRN (Reason: edema) RF: 0 losartan 100 MG tablet 1 tab PO DAILY RF: 0 Flovent HFA 12 GM HFA aerosol inhaler 2 puff inhalation DAILY RF: 0 potassium chloride 10 MEQ tablet 2 tab PO DAILY RF: 0 Fish Oil 1 EACH capsule 1 ea PO DAILY RF: 0 calcium carbonate-vitamin D3 1 EACH tablet 2 ea PO DAILY RF: 0 prednisone 10 mg Tablet 10 mg PO DAILY RF: 0 cetirizine [Zyrtec] 10 mg Tablet 10 mg PO DAILY RF: 0 aspirin 81 mg Tablet 81 mg PO DAILY RF: 0 coenzyme Q10 [Co Q-10] 100 mg Capsule 100 mg PO DAILY RF: 0 oxycodone-acetaminophen [oxycodone-acetaminophen] 1 TABLET tablet 1 tab PO Q6H PRN PRN (Reason: pain) 5 Days Qty: 20 RF: 0 Primary Care Provider: Juhi Pope NP Referrals: Juhi Pope NP, MEDIA MARKETING MANAGER-C [Primary Care Provider] - 1-2 Days if not improving Disposition Disposition: Home, Self Care
[2021-02-07] MEDS: HYDROmorphone 1 MG/ML Syringe IV (20:11)
== END 2021-02-07 20:56 | disposition home or self-care (01) ==
PROVIDERS: Emergency Provider Emergency Medicine; PCP Nurse Practitioner Family
DX: M54.9 Dorsalgia, unspecified (principal); Z66 Do not resuscitate; J44.9 Chronic obstructive pulmonary disease, unspecified; I48.91 Unspecified atrial fibrillation; Z79.899 Other long term (current) drug therapy; Z79.51 Long term (current) use of inhaled steroids; Z79.82 Long term (current) use of aspirin; Z87.891 Personal history of nicotine dependence
CPT/HCPCS: 96374; 96375; 99284; A4216; J2405

== ENCOUNTER 2021-02-10 17:07 | Observation (INO) | payer MEDICARE, OTHER, SELFPAY ==
[2021-02-10 17:09] VITALS: BP 158/147; PULSE 81; RESP 16; TEMP 36.2; O2SAT 92; BMI 22.9
--- NOTE | 2021-02-10 17:54 | EDS_ITS ---
HPI History of Present Illness Chief Complaint: Overdose Onset/Context/Timing Onset: Weeks (1) Context: Gradual Onset Timing: Continuous Current Severity: Severe Maximum Severity: Severe Worsened by: Movement Narrative Narrative: Patient presents with worsening back pain over the last several days. Patient was seen in the emergency department twice in the last 6 days for this. Patient had CT scan of her chest along with lab work on the initial visit which were all normal. Patient and family did not want any further testing on the second visit. Patient was given a prescription for oxycodone and Valium after the first visit. Patient was given a prescription for Duragesic patches after the second visit but these were not filled because of the recent oxycodone prescription. Patient took all of her oxycodone tablets because of the pain. Family states that she may have been taking them more frequently than prescribed due to the pain. Patient fell again today and has skin tears to her left arm. Patient is scheduled to see hospice in 2 days. Patient is requesting to go to hospice today. [facility] Medical History (Updated 02/10/21 @ 23:[address] Brock Johnson, ) AAA (abdominal aortic aneurysm) Aortic dissection Asthma Atrial fibrillation COPD (chronic obstructive pulmonary disease) Renal insufficiency Home Medications albuterol sulfate 2.5 mg INHALATION Q4H PRN PRN 10/26/18 [History Last Taken Unknown] calcium carbonate-vitamin D3 2 ea PO DAILY 10/26/18 [History Last Taken Unknown] flaxseed oil 1,000 mg PO DAILY 10/26/18 [History Last Taken Unknown] fluticasone propionate [Flovent Hfa] 2 puff INHALATION DAILY 10/26/18 [History Last Taken Unknown] furosemide 20 mg PO PRN PRN 10/26/18 [History Last Taken Unknown] losartan 1 tab PO DAILY 10/26/18 [History Last Taken Unknown] magnesium 500 mg PO DAILY 10/26/18 [History Last Taken Unknown] multivitamin [Daily Multiple Vitamin] 1 ea PO DAILY 10/26/18 [History Last Taken Unknown] omega-3 fatty acids-fish oil [Fish Oil 1,000 mg Capsule] 1 ea PO DAILY 10/26/18 [History Last Taken Unknown] potassium chloride 2 tab PO DAILY 10/26/18 [History Last Taken Unknown] triamterene-hydrochlorothiazid 1 cap PO DAILY 05/03/19 [History Last Taken Unknown] aspirin 81 mg PO DAILY 02/02/21 [History Last Taken Unknown] cetirizine [Zyrtec] 10 mg PO DAILY 02/02/21 [History Last Taken Unknown] coenzyme Q10 [Co Q-10] 100 mg PO DAILY 02/02/21 [History Last Taken Unknown] oxycodone-acetaminophen 1 tab PO Q6H PRN PRN 5 Days #20 tablet 02/02/21 [Rx Last Taken Unknown] prednisone 10 mg PO DAILY 02/02/21 [History Last Taken Unknown] diazepam [Valium] 5 mg PO TID PRN 5 Days #15 tab 02/07/21 [Rx Last Taken Unknown] fentanyl 1 patch TRANSDERMAL Q72H 15 Days #5 ea 02/07/21 [Rx Last Taken Unknown] oxycodone-acetaminophen [Percocet] 1 tab PO Q6H PRN 3 Days #12 tab 02/07/21 [Rx Last Taken Unknown] Allergy/AdvReac Type Severity Reaction Status Date / Time atenolol Allergy Unknown Verified 02/10/21 17:15 cephalexin [From Keflex] Allergy Unknown Verified 02/10/21 17:15 ciprofloxacin [From Cipro] Allergy Unknown Verified 02/10/21 17:15 fluticasone Allergy Hives Verified 02/10/21 17:15 [From Advair Diskus] Penicillins [PCN] Allergy Unknown Verified 02/10/21 17:15 salmeterol Allergy Hives Verified 02/10/21 17:15 [From Advair Diskus] Surgical History (Updated 02/10/21 @ 21:43 by MAURIZIO Balbuena) History of aortic valve replacement with porcine valve Social History (Updated 02/10/21 @ 21:44 by China Lewis NP-Mimi) Smoking Status: Former smoker alcohol intake: current alcohol intake frequency: 0-2 drinks per day Alcohol type: wine details: 1 glass of wine per evening ROS ROS ED Constitutional Constitutional ED: Denies chills or fever(s) Eyes Eyes: Denies blurry vision or change in vision ENT ENT ED: Denies rhinorrhea or sore throat Cardiovascular Cardiovascular: Denies chest pain or palpitations Respiratory/Chest Respiratory/Chest: Denies cough or dyspnea Gastrointestinal Gastrointestinal: Denies nausea or vomiting Genitourinary Genitourinary ED: Denies dysuria or hematuria Musculoskeletal Musculoskeletal: Reports back pain; Denies neck pain Integumentary Denies abscess or rash Neurologic Neurologic: Denies headache(s) or weakness Allergic/Immunologic Allergic/Immunologic ED: Denies mouth swelling or urticaria EXAM Physical Exam Const Vital Signs: 02/10/21 17:09 02/10/21 20:30 Temperature 97.2 F L Temperature Source Temporal Pulse Rate 81 64 Respiratory Rate 16 20 H Blood Pressure 158/147 H 182/106 H Blood Pressure Mean 150 131 Pulse Ox 92 98 Oxygen Delivery Method Room Air Room Air Positive well nourished and well developed General Appearance ED: well developed HEENT Reports moist mucous membranes Neck supple and no JVD Resp normal respiratory effort and clear to auscultation bilaterally Cardio regular rate and regular rhythm GI normal to inspection, nondistended, normoactive bowel sounds and non-tender Palpation: soft Extremity Extremity Narrative: There are skin tears noted to the left forearm and left hand. There is no active bleeding. Neuro oriented x3, CN's II-XII intact bilaterally and no sensory deficits noted Sensorium / Orientation: alert Motor Exam: strength 5/5 throughout Psych mental status grossly normal MDM MDM MDM Narrative Medical decision making narrative: Patient presents requesting hospice consult. Hospice was consulted and was in to evaluate the patient. They reviewed labs from the other day which were within normal limits. Hospice states that the patient does not qualify for hospice at this time. Family states that they cannot care for the patient at home. CBC was within normal limits. Comprehensive metabolic profile showed a sodium of 126 and chloride of 85. Potassium was 3.0. BUN was 48 and creatinine was 1.5. Liver function tests were normal. Case was discussed with the hospitalist. He will admit the patient to the hospital. Patient and family understood and were agreeable with the plan. All questions were answered. Lab Data Attestation: I reviewed the patient's lab results. Labs: Laboratory Results - last 24 hr 02/10/21 02/10/21 20:46 20:46 WBC 6.8 RBC 4.09 L Hgb 13.4 Hct 39.3 MCV 96.1 MCH 32.8 H MCHC 34.1 RDW Std Deviation 44.4 H RDW Coeff of Carmen 12.5 Plt Count 228 MPV 9.7 Immature Gran % (Auto) 3.400 H Neut % (Auto) 67.5 Lymph % (Auto) 19.4 [place] % (Auto) 8.7 Eos % (Auto) 0.4 Baso % (Auto) 0.6 Absolute Neuts (auto) 4.6 Absolute Lymphs (auto) 1.31 Nucleated RBC % 0 Sodium 126 L Potassium 3.0 L Chloride 85 L Carbon Dioxide 35.0 H Anion Gap 6 BUN 48 H Creatinine 1.50 H Estim Creat Clear Calc 25.57 Est GFR (MDRD) Af Amer 43 L Est GFR (MDRD) Non-Af 35 L BUN/Creatinine Ratio 32.0 H Glucose 80 Calcium 9.2 Total Bilirubin 0.80 AST 37 ALT 36 Alkaline Phosphatase 58 Total Protein 6.8 Albumin 4.0 Globulin 2.8 Albumin/Globulin Ratio 1.4 Discharge Plan Dx/Rx/DC Orders Clinical Impression: Debility, unspecified Disposition Disposition: Acute Care Hospital [facility] [place] Discharge Date/Time: 02/10/21 23:40
--- NOTE | 2021-02-10 18:45 | CM.ED ---
SOCIAL WORK Referral Source: Dr. Johnson Reason for Consult: Hospice Referral Informed by Dr. Johnson, patient and family to have meeting with [facility] on Monday. Family requesting hospice consult now. Met with patient and family in room. Introduced role. Informed this worker will contact hospice. Family states was to have [facility] come to the home on Monday. Family states cannot wait until Monday. Call to on-call hospice nurse to update on referral. Nurse reports will have RN come to the ER when available and anticipates RN to arrive around 8:30p-9p. Dr. Johnson, patient, and family updated. Plan: Hospice consult Sydney Arellano, PATIENT ACCOUNTS COORDINATOR, WHEEL INSTALLER
--- NOTE | 2021-02-10 19:34 | CM.ED ---
SOCIAL WORK Hospice here to meet with patient and family. Sydney Arellano, TOOL SPECIALIST, MANAGER CONSUMER
--- NOTE | 2021-02-10 19:58 | CM.ED ---
SOCIAL WORK Per Hospice, BLOOD BANK SUPERVISOR patient does not qualify for hospice and recommends Palliative Care. BLOOD BANK SUPERVISOR to update Dr. Johnson. Sydney Arellano, JOB COUNSELOR, WIRELESS SALES CONSULTANT
[2021-02-10 20:30] VITALS: BP 182/106; PULSE 64; RESP 20; O2SAT 98
[2021-02-10 20:52] LABS: Absolute Lymphocyte Count 1.31 X10^3/uL (0.83-4.51); Absolute Neutrophil Count 4.6 X10^3/uL (2.0-7.7); Basophil# 0.04 X10^3/uL; Basophil% 0.6 % (0-1); Eosinophil# 0.03 X10^3/uL; Eosinophils% 0.4 % (0-5); Hematocrit 39.3 % (37-47); Hemoglobin 13.4 g/dL (12.0-15.0); Lymphocyte # 1.31 X10^3/ul (0.83-4.51); Lymphocyte % 19.4 % (19-41); Mean Corp Hgb Conc 34.1 g/dL (32-36); Mean Corpuscular Hgb 32.8 pg (27.0-32.0); Mean Corpuscular Volume 96.1 fL (81-99); Mean Platelet Vol. 9.7 fl (6.2-12.0); Monocyte# 0.59 X10^3/uL; Monocyte% 8.7 % (0-10); NRBC Flagged by Analyzer 0 % (0-5); Neutrophil # 4.57 X10^3/uL (2.7-7.7); Neutrophil % 67.5 % (47-70); Platelet Count 228 K/mm3 (150-450); RBC Distribution Width CV 12.5 % (11.6-14.6); RBC Distribution Width SD 44.4 fl (35.1-43.9); Red Blood Count 4.09 M/mm3 (4.2-5.4); White Blood Count 6.8 K/mm3 (4.4-11.0)
[2021-02-10 21:09] LABS: ALB/GLOB Ratio 1.4 RATIO (0.9-2.4); AST(SGOT) 37 U/L (15-37); Alanine Aminotransfer ALT/SGPT 36 U/L (13-56); Alkaline Phosphatase 58 U/L (45-117); Anion Gap 6 (5-15); BUN 48 mg/dL (7-18); Calcium,Total 9.2 mg/dL (8.5-10.1); Chloride 85 mmol/L (98-107); EST Glomerular Filtration Rate 35 mL/min (>60); Est Glom Filt Rate - Afr Amer 43 mL/min (>60); Estimated Creatinine Clearance 25.57 ml/min; Globulin 2.8 g/dL (2.2-4.2); Glucose 80 mg/dL (74-106); Protein, Total 6.8 g/dL (6.4-8.2); Sodium Level 126 mmol/L (136-145)
--- NOTE | 2021-02-10 21:39 | RAD_ITS ---
STUDY: X-RAY - THORACIC SPINE REASON FOR EXAM: Female, 85 years old. Back pain TECHNIQUE: 2 view(s) of the thoracic spine were obtained. COMPARISON: 02/02/2021 chest radiograph FINDINGS: Normal kyphosis of the thoracic spine. There is no substantial scoliosis. Degenerative disc and endplate disease is most severe in the mid to lower thoracic spine. Wedged deformities at L1 and L2 are noted. Aortic arch aneurysm redemonstrated. RAD/Thoracic Spine 3 Views IMPRESSION: Degenerative changes in the thoracic spine increase from superior to inferior. Electronically Signed: Mahamed Gonzales MD at 23:14 EDT Tel , Service support ,
--- NOTE | 2021-02-10 21:39 | PCM.HP.STD ---
Documented by User: MAURIZIO Balbuena 02/10/21 22:03 HPI - General General Date of Admission: 02/10/21 Date of Service: 02/10/21 Chief Complaint: Intractable back pain HPI Narrative LYNETTE MATHEW, is a 85 F who presents complaints of intractable back pain. Patient family states that patient has been in this ER 3 times over the past 2 weeks for continued back pain. Chest x-ray and CTA from previous ER visits negative for acute findings. Patient was given oxycodone during previous ER visit. Patient's daughter reports patient took the oxycodone she had left which was approximately 2 to 4 pills. Patient's daughters report that patient has only got complete relief from pain when she received morphine in the ER at one of the prior visits. Patient laying in bed drowsy but arousable. Denies fever, chills, shortness of breath, cough, nausea, vomiting, diarrhea. [facility] Medical History (Updated 02/10/21 @ 21:50 by TRISTEN BalbuenaC) AAA (abdominal aortic aneurysm) Aortic dissection Asthma Atrial fibrillation COPD (chronic obstructive pulmonary disease) Renal insufficiency Home Medications albuterol sulfate 2.5 mg INHALATION Q4H PRN PRN 10/26/18 [History Last Taken Unknown] calcium carbonate-vitamin D3 2 ea PO DAILY 10/26/18 [History Last Taken Unknown] flaxseed oil 1,000 mg PO DAILY 10/26/18 [History Last Taken Unknown] fluticasone propionate [Flovent Hfa] 2 puff INHALATION DAILY 10/26/18 [History Last Taken Unknown] furosemide 20 mg PO PRN PRN 10/26/18 [History Last Taken Unknown] losartan 1 tab PO DAILY 10/26/18 [History Last Taken Unknown] magnesium 500 mg PO DAILY 10/26/18 [History Last Taken Unknown] multivitamin [Daily Multiple Vitamin] 1 ea PO DAILY 10/26/18 [History Last Taken Unknown] omega-3 fatty acids-fish oil [Fish Oil 1,000 mg Capsule] 1 ea PO DAILY 10/26/18 [History Last Taken Unknown] potassium chloride 2 tab PO DAILY 10/26/18 [History Last Taken Unknown] triamterene-hydrochlorothiazid 1 cap PO DAILY 10/26/18 [History Last Taken Unknown] aspirin 81 mg PO DAILY 02/02/21 [History Last Taken Unknown] cetirizine [Zyrtec] 10 mg PO DAILY 02/02/21 [History Last Taken Unknown] coenzyme Q10 [Co Q-10] 100 mg PO DAILY 02/02/21 [History Last Taken Unknown] oxycodone-acetaminophen 1 tab PO Q6H PRN PRN 5 Days #20 tablet 02/02/21 [Rx Last Taken Unknown] prednisone 10 mg PO DAILY 02/02/21 [History Last Taken Unknown] diazepam [Valium] 5 mg PO TID PRN 5 Days #15 tab 02/07/21 [Rx Last Taken Unknown] fentanyl 1 patch TRANSDERMAL Q72H 15 Days #5 ea 02/07/21 [Rx Last Taken Unknown] oxycodone-acetaminophen [Percocet] 1 tab PO Q6H PRN 3 Days #12 tab 02/07/21 [Rx Last Taken Unknown] Allergy/AdvReac Type Severity Reaction Status Date / Time atenolol Allergy Unknown Verified 02/10/21 17:15 cephalexin [From Keflex] Allergy Unknown Verified 02/10/21 17:15 ciprofloxacin [From Cipro] Allergy Unknown Verified 02/10/21 17:15 fluticasone Allergy Hives Verified 02/10/21 17:15 [From Advair Diskus] Penicillins [PCN] Allergy Unknown Verified 02/10/21 17:15 salmeterol Allergy Hives Verified 02/10/21 17:15 [From Advair Diskus] unable to obtain Surgical History (Updated 02/10/21 @ 21:43 by China Lewis NP-Mimi) History of aortic valve replacement with porcine valve Social History (Updated 02/10/21 @ 21:44 by MAURIZIO Balbuena) Smoking Status: Former smoker alcohol intake: current alcohol intake frequency: 0-2 drinks per day Alcohol type: wine details: 1 glass of wine per evening ROS Constitutional Constitutional: Denies anorexia, chills, fatigue, fever(s) or weakness Cardiovascular Cardiovascular: Reports chest pain; Denies edema or palpitations Respiratory/Chest Respiratory/Chest: Denies cough, shortness of breath at rest or shortness of breath with exertion Gastrointestinal Gastrointestinal: Denies abdominal pain, constipation, diarrhea, nausea or vomiting Genitourinary Genitourinary: Denies dysuria Musculoskeletal Musculoskeletal: Reports back pain; Denies extremity pain, joint pain or joint stiffness Integumentary Integumentary: Denies dry skin Neurologic Neurologic: Denies abnormal gait, abnormal speech, confusion, dizziness or focal weakness Psychiatric Psychiatric: Denies anxiety or depression Endocrine Endocrinology: Denies change in body appearance Hematologic/Lymphatic Hematologic/Lymphatic: Denies easy bleeding or easy bruising Vital Signs Vital Signs Vital Signs: 02/10/21 17:09 02/10/21 20:30 Temperature 97.2 F L Temperature Source Temporal Pulse Rate 81 64 Respiratory Rate 16 20 H Blood Pressure 158/147 H 182/106 H Blood Pressure Mean 150 131 Pulse Ox 92 98 Oxygen Delivery Method Room Air Room Air Weight Weight: 138 lb Body Mass Index (BMI) 22.9 Physical Exam Const General Appearance: cooperative and lethargic HEENT normocephalic and head/scalp atraumatic Eyes conjunctivae normal and no scleral icterus Neck supple and no JVD General: trachea midline Lymph Lymphatic: no lymphadenopathy noted Resp normal respiratory effort, normal air movement and clear to auscultation bilaterally Cardio regular rate, regular rhythm, S1 normal heart sound and S2 normal heart sound Peripheral Pulses: pulses 2+ throughout GI normal to inspection, nondistended, normoactive bowel sounds, soft to palpation and non-tender Extremity normal capillary refill and no clubbing, cyanosis or edema Extremity Narrative: Back pain to left posterior thoracic rib cage, reproducible with palpation Skin General Skin Exam: no breakdown and turgor normal Lesions: no lesions Rashes: no rashes Neuro no focal motor deficits and no sensory deficits noted Speech: Negative for speech normal Motor Exam: Negative for general weakness Psych thought process normal, cooperative and affect normal Appearance: appropriate Results Lab / Micro Data Result Diagrams: 02/10/21 20:46 02/10/21 20:46 Labs: Laboratory Results - last 24 hr 02/10/21 20:46: WBC 6.8, RBC 4.09 L, Hgb 13.4, Hct 39.3, MCV 96.1, MCH 32.8 H, MCHC 34.1, RDW Std Deviation 44.4 H, RDW Coeff of Carmen 12.5, Plt Count 228, MPV 9.7, Immature Gran % (Auto) 3.400 H, Neut % (Auto) 67.5, Lymph % (Auto) 19.4, [place]Brien % (Auto) 8.7, Eos % (Auto) 0.4, Baso % (Auto) 0.6, Absolute Neuts (auto) 4.6, Absolute Lymphs (auto) 1.31, Nucleated RBC % 0 / 20:46: Sodium 126 L, Potassium 3.0 L, Chloride 85 L, Carbon Dioxide 35.0 H, Anion Gap 6, BUN 48 H, Creatinine 1.50 H, Estim Creat Clear Calc 25.57, Est GFR (MDRD) Af Amer 43 L, Est GFR (MDRD) Non-Af 35 L, BUN/Creatinine Ratio 32.0 H, Glucose 80, Calcium 9.2, Total Bilirubin 0.80, AST 37, ALT 36, Alkaline Phosphatase 58, Total Protein 6.8, Albumin 4.0, Globulin 2.8, Albumin/Globulin Ratio 1.4 Assessment & Plan Assessment/Plan (1) Acute back pain: QUALIFIERS: Back pain laterality: bilateral Back pain location: thoracic back pain Qualified Code(s): M54.6 - Pain in thoracic spine (2) Acute chest wall pain: PLAN: 1. Acute back pain -Admit to [facility] for observation and pain management -Patient was seen by hospice in ER and was ruled not a candidate for inpatient hospice, will consult palliative care per family and patient request -IV morphine ordered as needed -Will obtain x-ray of thoracic and lumbar spine due to patient's complaint of back pain which was reproducible with palpation. -Every 2 hours positioning -Methocarbamol 750 mg p.o. 4 times a day 2. Hypertension -Patient currently hypertensive, for reports patient has not taken any of her chronic medications today. Will continue home regimen -Vital signs per protocol, trend BP -As needed hydralazine ordered 3. CHF -Stable -Continue home medication regimen 4. COPD -Stable -Will continue patient home regimen -Oxygen ordered per protocol 5. Chronic kidney disease stage IIIb -Stable -BUN and creatinine consistent with baseline. 6. Hepatitis B -Liver function tests within normal limits -Patient has never underwent treatment, patient family reports patient contracted hepatitis B from a blood transfusion following childbirth 60 years ago. 7. History of aortic valve replacement with porcine valve DVT prophylaxis-SCDs This patient was seen by MAURIZIO Balbuena under the supervision of Dr. Melara. Documented by User: Dr. Janes Melara MD 02/10/21 22:32 HPI - General General Date of Admission: 02/10/21 [facility] Medical History (Updated 02/10/21 @ 21:50 by China Lewis [employer]IOR NET PROGRAMMER-C) AAA (abdominal aortic aneurysm) Aortic dissection Asthma Atrial fibrillation COPD (chronic obstructive pulmonary disease) Renal insufficiency Home Medications albuterol sulfate 2.5 mg INHALATION Q4H PRN PRN 10/26/18 [History Last Taken Unknown] calcium carbonate-vitamin D3 2 ea PO DAILY 10/26/18 [History Last Taken Unknown] flaxseed oil 1,000 mg PO DAILY 10/26/18 [History Last Taken Unknown] fluticasone propionate [Flovent Hfa] 2 puff INHALATION DAILY 10/26/18 [History Last Taken Unknown] furosemide 20 mg PO PRN PRN 10/26/18 [History Last Taken Unknown] losartan 1 tab PO DAILY 10/26/18 [History Last Taken Unknown] magnesium 500 mg PO DAILY 10/26/18 [History Last Taken Unknown] multivitamin [Daily Multiple Vitamin] 1 ea PO DAILY 10/26/18 [History Last Taken Unknown] omega-3 fatty acids-fish oil [Fish Oil 1,000 mg Capsule] 1 ea PO DAILY 10/26/18 [History Last Taken Unknown] potassium chloride 2 tab PO DAILY 10/26/18 [History Last Taken Unknown] triamterene-hydrochlorothiazid 1 cap PO DAILY 10/26/18 [History Last Taken Unknown] aspirin 81 mg PO DAILY 02/02/21 [History Last Taken Unknown] cetirizine [Zyrtec] 10 mg PO DAILY 02/02/21 [History Last Taken Unknown] coenzyme Q10 [Co Q-10] 100 mg PO DAILY 02/02/21 [History Last Taken Unknown] oxycodone-acetaminophen 1 tab PO Q6H PRN PRN 5 Days #20 tablet 02/02/21 [Rx Last Taken Unknown] prednisone 10 mg PO DAILY 02/02/21 [History Last Taken Unknown] diazepam [Valium] 5 mg PO TID PRN 5 Days #15 tab 02/07/21 [Rx Last Taken Unknown] fentanyl 1 patch TRANSDERMAL Q72H 15 Days #5 ea 02/07/21 [Rx Last Taken Unknown] oxycodone-acetaminophen [Percocet] 1 tab PO Q6H PRN 3 Days #12 tab 02/07/21 [Rx Last Taken Unknown] Allergy/AdvReac Type Severity Reaction Status Date / Time atenolol Allergy Unknown Verified 02/10/21 17:15 cephalexin [From Keflex] Allergy Unknown Verified 02/10/21 17:15 ciprofloxacin [From Cipro] Allergy Unknown Verified 02/10/21 17:15 fluticasone Allergy Hives Verified 02/10/21 17:15 [From Advair Diskus] Penicillins [PCN] Allergy Unknown Verified 02/10/21 17:15 salmeterol Allergy Hives Verified 02/10/21 17:15 [From Advair Diskus] Surgical History (Updated 02/10/21 @ 21:43 by China Lewis NP-C) History of aortic valve replacement with porcine valve Social History (Updated 02/10/21 @ 21:44 by China Lewis NP-C) Smoking Status: Former smoker alcohol intake: current alcohol intake frequency: 0-2 drinks per day Alcohol type: wine details: 1 glass of wine per evening Results Lab / Micro Data Result Diagrams: 02/10/21 20:46 02/10/21 20:46 Charges/Coding Addendum Addendum: Patient was seen and examined independently. I agree with assessment and plan by China Lewis NP-C In summary, patient is an 85-year-old female with a significant history of hepatitis; and COPD who presents to the emergency department with intermittent excruciating back pain that started about 2 months ago. She described her back pain as sharp and aching. Her back pain started while patient was at rest. She was evaluated at [facility] for heart attack but that was negative. Thereafter she has sought care from multiple providers. She was on home Percocet which is not helping. Further, she was placed on Valium. Patient and family thinks that the valium does not help her but it is only making her unstable on her feet. Patient has an appointment to be evaluated by hospice in 2 days. While at the emergency department hospice was consulted. However hospice felt that patient was not a candidate for hospice. Her back pain moves through out her entire back. Her pain does not radiate anywhere else. She denies any aggravating or ameliorating factor. Except that morphine that she received at the emergency department helped her. Physical exam: General: Well-nourished, well-developed, no acute distress Head: Normocephalic, atraumatic, no tenderness Eyes: PERRLA, EOMI ENT, no trauma, moist mucous membranes, no rhinorrhea Neck: Nontender, full range of motion, no spinal tenderness, deformities, step-off CVS: Regular rate and rhythm Respiratory no acute distress, clear to auscultation bilaterally, chest wall nontender, no wheezing Abdomen: Soft, nondistended, normal bowel sounds, no masses. Tender abdomen. : Deferred Back: Tender spinous processes and paraspinal area of the middle back. Extremities: Nontender full range of motion, no trauma Skin: Normal color, no trauma, abrasions Neuro: Alert, oriented, cranial nerves II through XII grossly intact. Psychiatry: Normal mood. Normal affect. Not depressed. Not anxious. Assessment and plan Intractable back pain. Hold home Percocet and Valium. Placed on schedule Decadron. Hold home prednisone for COPD. Methocarbamol ordered.. Morphine ordered. X-ray back ordered. Hypokalemia Review of emergency department labs showed potassium 3.0. Potassium chloride 40 mEq ordered. Continue home potassium supplementation. Check magnesium. DVT prophylaxis SCD ordered. Visit Charges OBSV E&M: 90169 Initial observation care L2
[2021-02-10 22:21] VITALS: BP 135/69; PULSE 86; RESP 16; TEMP 36.6; O2SAT 88
[2021-02-10] MEDS: Morphine 4 MG/ML Syringe IV (22:25)
[2021-02-10] MEDS: Ondansetron 4 MG/2 ML Vial IV (22:25)
--- NOTE | 2021-02-10 22:46 | RAD_ITS ---
STUDY: X-RAY - LUMBAR SPINE REASON FOR EXAM: Female, 85 years old. Back pain TECHNIQUE: 2 view(s) of the lumbar spine were obtained. COMPARISON: None FINDINGS: Normal lumbar lordosis. There is no substantial scoliosis. There is a normal alignment of the vertebrae. L1 compression deformity is probably chronic. L2 compression deformity of uncertain age. Mild multilevel degenerative disc and endplate disease. Facet arthropathy increases from superior to inferior. Cholelithiasis. Other calcifications throughout the abdomen and pelvis. RAD/Lumbar Spine 2 or 3 Views IMPRESSION: L2 compression deformity of uncertain age. Degenerative change throughout the lumbar spine. Electronically Signed: Mahamed Gonzales MD at 23:17 EDT Tel , Service support ,
[2021-02-11] VITALS (10 sets, daily range): BP systolic 97–125; BP diastolic 51–65; PULSE 68–113; RESP 12–20; TEMP 36.4–37.2; O2SAT 92–100; BMI 24.4
[2021-02-11] MEDS: dexAMETHasone 4 MG/ML Vial IV ×2 (01:06→05:45)
[2021-02-11] MEDS: Ibuprofen 400 MG Tablet PO ×2 (01:06→05:45)
[2021-02-11] MEDS: Potassium Chloride Oral Tablet 20 MEQ 40 MEQ PO (01:06)
[2021-02-11] MEDS: Methocarbamol 750 MG Tablet PO ×5 (01:06→22:00)
[2021-02-11] MEDS: 0.9% Saline Lock 10 ML Syringe IV ×2 (01:06→05:45)
[2021-02-11] MEDS: MELATONIN 3 MG TABLET PO (01:07)
[2021-02-11] MEDS: Menthol/Lanolin/Calamine/Znox 113 GM Tube 1 APPLIC TOPICAL ×2 (05:45→22:00)
[2021-02-11 06:24] LABS: Absolute Lymphocyte Count 0.59 X10^3/uL (0.83-4.51); Absolute Neutrophil Count 10.4 X10^3/uL (2.0-7.7); Basophil# 0.06 X10^3/uL; Basophil% 0.5 % (0-1); Eosinophil# 0.01 X10^3/uL; Eosinophils% 0.1 % (0-5); Hematocrit 41.6 % (37-47); Hemoglobin 14.2 g/dL (12.0-15.0); Lymphocyte # 0.59 X10^3/ul (0.83-4.51); Lymphocyte % 5.1 % (19-41); Mean Corp Hgb Conc 34.1 g/dL (32-36); Mean Corpuscular Hgb 33.3 pg (27.0-32.0); Mean Corpuscular Volume 97.4 fL (81-99); Monocyte# 0.26 X10^3/uL; Monocyte% 2.2 % (0-10); NRBC Flagged by Analyzer 0 % (0-5); Neutrophil # 10.37 X10^3/uL (2.7-7.7); Neutrophil % 89.3 % (47-70); POSITIVE DIFFERENTIAL YES; Platelet Count 231 K/mm3 (150-450); RBC Distribution Width CV 12.5 % (11.6-14.6); RBC Distribution Width SD 44.8 fl (35.1-43.9); Red Blood Count 4.27 M/mm3 (4.2-5.4); White Blood Count 11.6 K/mm3 (4.4-11.0)
[2021-02-11 06:28] LABS: Differential Indicated SCAN CRITERIA MET
[2021-02-11 06:40] LABS: Differential Comment SCANNED
[2021-02-11 06:51] LABS: ALB/GLOB Ratio 1.3 RATIO (0.9-2.4); AST(SGOT) 41 U/L (15-37); Alanine Aminotransfer ALT/SGPT 37 U/L (13-56); Alkaline Phosphatase 60 U/L (45-117); Anion Gap 7 (5-15); BUN 44 mg/dL (7-18); BUN/Creat Ratio 30.3 RATIO (10-20); Calcium,Total 9.1 mg/dL (8.5-10.1); Chloride 87 mmol/L (98-107); Creatinine, Serum 1.45 mg/dL (0.55-1.02); EST Glomerular Filtration Rate 37 mL/min (>60); Est Glom Filt Rate - Afr Amer 44 mL/min (>60); Estimated Creatinine Clearance 24.32 ml/min; Glucose 98 mg/dL (74-106); Potassium 3.8 mmol/L (3.5-5.1); Sodium Level 125 mmol/L (136-145)
[2021-02-11] MEDS: Budesonide Respules 0.5 MG/2 ML AMPUL.NEB. INHALATION ×2 (07:15→19:57)
[2021-02-11] MEDS: Albuterol 2.5 MG/3 ML VIAL.NEB. INHALATION ×2 (07:23→19:57)
[2021-02-11 07:49] LABS: Magnesium 3.2 mg/dL (1.6-2.6)
[2021-02-11] MEDS: Loratadine 10 MG Tablet PO (09:05)
[2021-02-11] MEDS: Triamterene 37.5MG/Hctz 25MG Capsule 1 CAP PO (09:05)
[2021-02-11] MEDS: Omega-3 Acid Ethyl Esters 1 GM Capsule PO (09:05)
[2021-02-11] MEDS: Losartan Potassium 100 MG Tablet PO (09:05)
[2021-02-11] MEDS: Aspirin 81 MG TAB.CHEW PO (09:05)
[2021-02-11] MEDS: Multivitamins,Therapeutic Tablet 1 TABLET PO (09:05)
[2021-02-11] MEDS: Calcium Carb/Vitamin D 1 TABLET Tablet 2 TABLET PO (09:06)
[2021-02-11] MEDS: Magnesium Chloride 64 MG Delay Rel.Tablet PO (09:06)
--- NOTE | 2021-02-11 10:03 | PN.HOSP_ITS ---
Subjective Subjective Patient seen and examined. He was admitted with a complaint of intractable back pain and is being managed for debility and for placement. Patient feels much better today. Pain is improved markedly. In fact she had no complaints about pain today. Review of systems otherwise negative. She has remained hemodynam ically stable. Objective Data Objective Data Vital Signs: Vital Signs Temp Pulse Resp BP Pulse Ox 97.6 F L 76 16 118/57 L 92 02/11/21 06:12 02/11/21 07:15 02/11/21 07:15 02/11/21 06:12 02/11/21 07:15 Oxygen Delivery Method Room Air Weight: 138 lb Body Mass Index (BMI) 24.4 Intake & Output: Intake and Output for Last 24 Hours 02/09/21 02/10/21 02/11/21 23:59 23:59 23:59 Intake Total 250 / 250 Output Total 400 / 400 Balance -150 / -150 Lab / Micro Data Result Diagrams: 02/11/21 06:16 02/11/21 06:16 Labs: Laboratory Results - last 24 hr 02/10/21 20:46: WBC 6.8, RBC 4.09 L, Hgb 13.4, Hct 39.3, MCV 96.1, MCH 32.8 H, MCHC 34.1, RDW Std Deviation 44.4 H, RDW Coeff of Carmen 12.5, Plt Count 228, MPV 9.7, Immature Gran % (Auto) 3.400 H, Neut % (Auto) 67.5, Lymph % (Auto) 19.4, [place] % (Auto) 8.7, Eos % (Auto) 0.4, Baso % (Auto) 0.6, Absolute Neuts (auto) 4.6, Absolute Lymphs (auto) 1.31, Nucleated RBC % 0 02/10/21 20:46: Sodium 126 L, Potassium 3.0 L, Chloride 85 L, Carbon Dioxide 35.0 H, Anion Gap 6, BUN 48 H, Creatinine 1.50 H, Estim Creat Clear Calc 25.57, Est GFR (MDRD) Af Amer 43 L, Est GFR (MDRD) Non-Af 35 L, BUN/Creatinine Ratio 32.0 H, Glucose 80, Calcium 9.2, Total Bilirubin 0.80, AST 37, ALT 36, Alkaline Phosphatase 58, Total Protein 6.8, Albumin 4.0, Globulin 2.8, Albumin/Globulin Ratio 1.4 02/11/21 06:16: Magnesium 3.2 H 02/11/21 06:16: WBC 11.6 H, RBC 4.27, Hgb 14.2, Hct 41.6, MCV 97.4, MCH 33.3 H, MCHC 34.1, RDW Std Deviation 44.8 H, RDW Coeff of Carmen 12.5, Plt Count 231, MPV 10.0, Immature Gran % (Auto) 2.800 H, Neut % (Auto) 89.3 H, Lymph % (Auto) 5.1 L , [place] % (Auto) 2.2, Eos % (Auto) 0.1, Baso % (Auto) 0.5, Absolute Neuts (auto) 10.4 H, Absolute Lymphs (auto) 0.59 L, Nucleated RBC % 0, Differential Comment SCANNED 02/11/21 06:16: Sodium 125 L, Potassium 3.8, Chloride 87 L, Carbon Dioxide 31.0, Anion Gap 7, BUN 44 H, Creatinine 1.45 H, Estim Creat Clear Calc 24.32, Est GFR (MDRD) Af Amer 44 L, Est GFR (MDRD) Non-Af 37 L, BUN/Creatinine Ratio 30.3 H, Glucose 98, Calcium 9.1, Total Bilirubin 0.70, AST 41 H, ALT 37, Alkaline Phosphatase 60, Total Protein 7.0, Albumin 4.0, Globulin 3.0, Albumin/Globulin Ratio 1.3 Radiography Diagnostic Testing: Radiology Impression Thoracic Spine X-Ray 02/10/21 21:39 IMPRESSION: Degenerative changes in the thoracic spine increase from superior to inferior. Electronically Signed: Mahamed Gonzales MD at 23:14 EDT Tel , Service support , Lumbar Spine X-Ray 02/10/21 22:46 IMPRESSION: L2 compression deformity of uncertain age. Degenerative change throughout the lumbar spine. Electronically Signed: Mahamed Gonzales MD at 23:17 EDT Tel , Service support , Physical Exam Const alert, oriented x3 and no apparent distress Exam Limitations: no limitations HEENT head/scalp atraumatic and moist oral mucous membranes Head and Scalp: normocephalic Eyes PERRL, EOMs intact bilaterally and conjunctivae normal Neck no lymphadenopathy and supple Resp normal respiratory effort, no retractions, no use of accessory muscles and clear to auscultation bilaterally Cardio regular rate, regular rhythm, S1 normal heart sound, S2 normal heart sound and no murmurs GI normal to inspection, nondistended, normoactive bowel sounds, soft to palpation, non-tender and non-distended Extremity normal to inspection, full ROM and no clubbing, cyanosis or edema Peripheral Pulses: Yes pulses 2+ throughout Skin no rashes or lesions noted Neuro oriented x3 Sensorium / Orientation: awake and alert Psych affect normal Assessment & Plan Assessment/Plan (1) Acute back pain: QUALIFIERS: Back pain laterality: bilateral Back pain location: thoracic back pain Qualified Code(s): M54.6 - Pain in thoracic spine (2) Debility, unspecified: PLAN: #intractable back pain * pain is much better today. * PT/OT on board. Fall precautions * on ibuprofen prn and IV morphine prn * palliative care consulted * xray of lumbar and thoracic spine: L2 compression deformity of uncertain age and degenerative changes throughout the lumbar spine, wtih chronic L1 compression deformity; degenerative changes in thoracic spine also * #Hypertension: on losartan and maxzide. IV hydralazine prn #Heart failure: not in exacerbation. #CKD stage 3b: stable. #Hepatitis B: * stable. Treatment naive. * Apparently she contracted hepatitis B from a blood transfusion received during childbirth ~ 60 years ago. * DVT prophylaxis: SCDs Disposition: I was subsequently informed by the social economist that patient expressed suicidal ideation, and said she just wanted to take some morphine and . Patient will therefore need psychiatric placement for suicidal ideation. Charges/Coding Visit Charges Inpatient E&M: 70338 Subs Hosp L2
--- NOTE | 2021-02-11 11:15 | CON.PCM.PA_ITS ---
Assessment & Plan Assessment/Plan (1) Acute back pain: QUALIFIERS: Back pain laterality: bilateral Back pain location: thoracic back pain Qualified Code(s): M54.6 - Pain in thoracic spine (2) Debility, unspecified: (3) Drug induced constipation: PLAN: 85-year-old female with acute low back pain, found to have old compression L1 but no acute fractures. Palliative care consulted as patient's family wanted her admitted to hospice, however she does not have any qualifying diagnosis or life expectancy of less than 6 months. Patient's family is wanting pain management. 1. Acute low back pain: Degenerative changes. No history of chronic back pain. Patient is a candidate for palliative care but not for her back pain, this would be more pain management per guidelines. I would suggest treating with dexamethasone for the acute phase, scheduled Tylenol, topical analgesics such as Biofreeze or diclofenac, and ice and heat as needed. Caution with narcotics given her age, fall risk, and suggestion that she would like to take some pills to . If she does have narcotics in the home, I would suggest them be in a locked box and controlled by family only. Of note, the patient has not taken any morphine since being in the ED. She has gotten 2 doses of ibuprofen 400 mg. 2. Debility and weakness: She is ambulating fairly well with a walker. Participating in therapy. Plan is to DC home. 3. Drug-induced constipation: MiraLAX is effective, monitor. Thank you for the opportunity to participate in this patient's care, please do not hesitate to contact [facility] with any further questions or concerns. Palliative direct line is [phone]. We will follow up after discharge and will discuss palliative services further at that time. Spoke with the patient's son and he has my contact information, liaison will be reaching out to the family to sign consents. Greater than 50% of F2F visit dedicated to education and counseling of palliative care services, medications, comorbid conditions and potential assistance with management, and plan of care moving forward. Discussed narcotic safety with patient and son. Discussed hospice and palliative services with be nefits and limitations. Start time: 1115 End time: 1146 End time: 1301 End time: 1322 Total time: 52 minutes HPI Consult Data Date of Consult: 02/12/21 HPI Narrative HPI Narrative: LYNETTE HRANKO, is a 85 F who presented to [facility] for the third time in 1 week secondary to worsening back pain. She had a chest x-ray and chest CTA on the 10th (patient had elevated D-dimer) which showed hyperinflation, nothing acute on the x-ray and CT was negative for PE. It did show stable aortic dissection and dilation of the right ventricle as well as the left atrium. She then had a thoracic and lumbar spine x-ray on day of admission which showed degenerative changes in the thoracic spine that increases from superior to inferior, with wedge deformities of L1 and L2. There is an L2 compression deformity of uncertain age. Patient does have hyponatremia at 125 and CKD with BUN of 44 and creatinine 1.45. Her GFR is 33-37 at baseline. EKG showed atrial fibrillation with left anterior fascicular block and septal infarct with age undetermined. Patient was admitted for further evaluation and management. Palliative care was consulted per request of the family, they actually wanted hospice but it was unclear if patient would qualify at this time. The plan is for patient to be placed in a nursing facility upon discharge. Of note, patient has reported improvement of pain today. She has as needed ibuprofen and as needed IV morphine. Other past medical history includes aortic valve replacement with porcine valve 1997, congestive heart failure, untreated hepatitis B which she contracted as a child from a blood transfusion, CKD stage III, hypertension, COPD. Her AAA dissection was repaired in 1996. She previously followed with possibly Dr. Smalls in [place]? Her protection mgr is in [place] at [facility]. Patient reports she has torso pain at times. This has been longstanding but worse recently. It usually only lasts about an hour but lately has been lasting up to 24 hours. Recently went by squad to [facility] and had a CT which was negative. Sometimes the pain is in her shoulders, sometimes her kidneys and abdomen. It varies at location. Typically moderately severe. The only thing that really helped as when she was in the ED she had morphine. Otherwise, patient does not have any chronic pain issues. She does not ever take Tylenol or ibuprofen at home. Denies cough, fever, chills, congestion. She is somewhat weak. No dizziness or syncope. No significant shortness of breath, denies any current chest pain. No numbness or tingling. She does admit to new ankle edema at times. States when she retains water, it is typically in her abdomen. No N/V/D. Does not typically have constipation but with prednisone she does. She is currently taking MiraLAX which is effective. Denies any dysuria but does have stress incontinence. Patient uses a walker at home. She lives alone but her care kids have been staying there 16/01 for the last week or so. She has 4 children, one of her sons lives in [place] otherwise they all live in the area. She has been for 20 years, states her was an alcoholic and gambled. She never had any history of drug abuse but was a smoker 1 pack/day for 20 years. She does drink 1 glass of wine every night before bed, otherwise no alcohol intake. No family or personal history of cancer. Patient was getting Decadron while in the hospital IV, however that is completed as of today. She is also on methocarbamol 4 times a day and takes diazepam at home as needed. [facility] Medical History AAA (abdominal aortic aneurysm) Aortic dissection Asthma Atrial fibrillation Chronic pain Congestive heart failure (CHF) COPD (chronic obstructive pulmonary disease) Coronary artery disease Dissecting aneurysm of aorta Former smoker Hearing loss, left Hearing loss, right Hepatitis Hypertension Renal insufficiency TIA (transient ischemic attack) Home Medications albuterol sulfate 2.5 mg INHALATION Q4H PRN PRN 10/26/18 [History Last Taken Unknown] calcium carbonate-vitamin D3 2 ea PO DAILY 10/26/18 [History Last Taken Unknown] flaxseed oil 1,000 mg PO DAILY 10/26/18 [History Last Taken Unknown] fluticasone propionate [Flovent Hfa] 2 puff INHALATION DAILY 10/26/18 [History Last Taken Unknown] furosemide 20 mg PO PRN PRN 10/26/18 [History Last Taken Unknown] losartan 1 tab PO DAILY 10/26/18 [History Last Taken Unknown] magnesium 500 mg PO DAILY 10/26/18 [History Last Taken Unknown] multivitamin [Daily Multiple Vitamin] 1 ea PO DAILY 10/26/18 [History Last Taken Unknown] omega-3 fatty acids-fish oil [Fish Oil 1,000 mg Capsule] 1 ea PO DAILY 10/26/18 [History Last Taken Unknown] potassium chloride 2 tab PO DAILY 10/26/18 [History Last Taken Unknown] triamterene-hydrochlorothiazid 1 cap PO DAILY 10/26/18 [History Last Taken Unknown] aspirin 81 mg PO DAILY 02/02/21 [History Last Taken Unknown] cetirizine [Zyrtec] 10 mg PO DAILY 02/02/21 [History Last Taken Unknown] coenzyme Q10 [Co Q-10] 100 mg PO DAILY 02/02/21 [History Last Taken Unknown] prednisone 10 mg PO DAILY 02/02/21 [History Last Taken Unknown] diazepam [Valium] 5 mg PO TID PRN 5 Days #15 tab 02/07/21 [Rx Last Taken Unknown] oxycodone-acetaminophen [Percocet] 1 tab PO Q6H PRN 3 Days #12 tab 02/07/21 [Rx Last Taken Unknown] Allergy/AdvReac Type Severity Reaction Status Date / Time atenolol Allergy Unknown Verified 02/10/21 17:15 cephalexin [From Keflex] Allergy Unknown Verified 02/10/21 17:15 ciprofloxacin [From Cipro] Allergy Unknown Verified 02/10/21 17:15 fluticasone Allergy Hives Verified 02/10/21 17:15 [From Advair Diskus] Penicillins [PCN] Allergy Unknown Verified 02/10/21 17:15 salmeterol Allergy Hives Verified 02/10/21 17:15 [From Advair Diskus] Surgical History History of aortic valve replacement with porcine valve Social History Smoking Status: Former smoker alcohol intake: current alcohol intake frequency: 0-2 drinks per day Alcohol type: wine details: 1 glass of wine per evening ROS ROS Narrative Review of systems otherwise negative from a constitutional, HEENT, respiratory, cardiovascular, GI, genitourinary, musculoskeletal, skin, neurologic, psychiatric and hematologic system unless stated above. Physical Exam Const oriented x3 and no apparent distress Constitutional Narrative: fatigued, closing eyes but still conversing General Appearance: cooperative, comfortable and well kempt HEENT normocephalic and head/scalp atraumatic Eyes General Eye: normal appearance of both eyes Neck supple General: trachea midline Resp normal respiratory effort Effort and Inspection: able to speak in complete sentences and symmetric chest movement Auscultation: diminished lung sounds Cardio S1 normal heart sound and S2 normal heart sound GI normal to inspection, nondistended, normoactive bowel sounds Extremity no clubbing, cyanosis or edema Skin no rashes or lesions noted Neuro CN's II-XII intact bilaterally and no focal motor deficits Psych Appearance: grossly normal Attitude: calm Activity / Motor Behavior: appropriate eye contact Speech: normal speech Mood & Affect: depressed, flat affect and other suicidal thoughts, mentioning taking pills Thought Content: No hallucination(s) Attention / Concentration: attention grossly intact Memory / Cognition: memory grossly intact Insight: limited Judgement: limited
--- NOTE | 2021-02-11 11:15 | CASEMGMT ---
ALLY RAMIREZ Assessment: Face to Face with pt for initial transition planning/care coordination assessment. ALLY RAMIREZ introduced self and role at [facility], pt voices understanding and consents to assessment. Pt is A/O x4 and answers all questions appropriately at this time. Pt is sitting in chair in no distress with eyes closed through parts of assessment. Pt speaks very softly. Care providers, pharmacy, and demographics verified/updated. Admitting Dx: intractable back pain PCP:Juhi Pope NP Specialists: Pt denies having any specialists. Preferred Pharmacy: [facility] while inpatient Insurance: [employer], commercial Prescription Benefit: yes LW/HPOA: Pt states she has a LW/DPOA. Her DPOA is her son Roger Nathan. She is aware that it is not on file at [facility] and she may bring in to be scanned into the chart. She states it is at [facility]. LNOK: Pricila Garcia, dtr; Roger Nathan, son Living Arrangements: Pt lives in a two story apartment. She lives on the main floor and her dtr lives upstairs. Pt reports being I in ADL's at home. She denies concerns at home. Transportation: Pt does not drive. Her son transports her to medical appts. DME/HHC/SNF: Pt has a nebulizer at home, shower chair, grab bars at bath tub and toilet and two rollators. Pt denies having any previous HHC or SNF stays. When discussing pt plans after hospital stay pt stated I hope to get on morphine and just . Pt states morphine is the only pain medication that helps her pain. She states she is comfortable now. She states she hopes not to go to a SNF and denies need for HHC as she feels therapy will cause her more pain. She states she would like to go home where she can read and do her crossword puzzles. Discussed with patient briefly regarding hospice and palliative care. Pt states she would be open to either as long as they can give her morphine at home. Pt states no concerns with going home at time of dc. Pt states no further concerns/needs. CM to follow. Advised pt to ask CM if any further question/concerns/needs arise, voices understanding. Pt Goal: Home Plan: Home with family support Notified María regarding patient statement regarding dying as well as Grace Seun EQUITY SALES ASSISTANT from Palliative. Palliative is ready to see pt after this CM assessment. Notified her of pt wishes for pain control.
--- NOTE | 2021-02-11 15:49 | CASEMGMT ---
RN CM in to discuss HILARIO form with patient. RN CM explained HILARIO form, patient voiced understanding. Pt signed form and filed in chart. Pt provided with a copy of signed HILARIO form. Pt son at bedside. Pt requested crossword puzzle, CM obtained and gave to pt. Pt denies further needs.
--- NOTE | 2021-02-11 17:00 | CASEMGMT ---
Social Work Note PAWAN updated that pt stated to ALLY RAMIREZ that she wanted to take Morphine and . SW in to speak with pt. SW introduced self and role at [facility]. SW asked pt how she is handling her recent back pain and pt states I want to be . SW spoke with pt about her back pain. Pt states that she has had five episodes of back pain and they usually get better within 24 hours but this last episode has been going on since last . Pt states she has been to the ED 3x and one of the visits she went to [place] because they thought she was having a heart attack but pt wasn't. Pt states her pain is being well controlled now and she would like to discharge home with Morphine. SW asked pt if Palliative had met with pt and pt confirms they did. 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 Support: Pt states that her family is wonderful and supportive. Pt states specifically her children are good support. Pt states she has four children (Roger, Jame, Manan, Pricila). Pt states she lives with her daughter Pricila in a Condo. Pt states that years ago Pricila's had cheated on her so they got a divorce and pt bought the Condo for her and Pricila to live in and then when Pricila could afford it, she bought the condo from the pt. Pt states that she is alone most of the time as Pricila still works. Pt states that all of her children are good support to her. Family History: Pt states she had many siblings growing up but only one younger sister is still living. Pt states she didn't have a good relationship with her mother growing up and the two siblings she had a good relationship with growing up are now passed. Marital Status: Demographics sheet states pt is . Pt states she took care of her for 10 years and he called her a bitch and an fucking bitch. Pt states that's not nice to call anyone that. SW offered support to pt and confirmed that that is not nice to say to anyone and not nice to hear that either. Mental Health: Pt denied any history of Mental Health Hx of Suicidal thoughts/plans/ideations: Pt confirms she has history of suicidal thoughts/plans/ideations. Pt states that five years ago she had a plan of how to kill herself. Pt states she was going to take a pipe and hook it up from the exhaust on her car to the inside of her car. Pt states she was going to drive somewhere where her kids couldn't find her. Pt states she never attempted suicide though. Pt states the car company made her put a Hoffman Converter on her exhaust so she was not able to put a pipe on her exhaust to the inside of her car anymore. Pt denied any additional suicidal plans. Pt does state that if there was a physician that would do physician outpatient physical therapist assistant suicide she would look into that. Pt states she knows of one doctor in [place] but states you have to be a resident there and I am not. SW asked pt about the pain pills she took yesterday. Pt states she took five Oxycodone and Valium. SW asked pt if she took the pills to take away the back pain she was having and pt states it was to harm myself. Pt confirms again that she took the Oxycodone and Valium in an attempt to hurt herself yesterday. Pt stated that she wanted to yesterday. SW asked pt to elaborate on her thoughts when her back pain gets bad. Pt confirms that she has suicidal thoughts when she has back pain. Pt states when she is in pain that is a factor on having suicidal thoughts. SW asked pt about being oriental orthodox. Pt state voodoo is a big part in her life. SW asked pt that isn't it a sin in voodoo for someone to take their own life and pt states it is, but I am willing to take that risk. SW asked pt if her children are aware of her thoughts and pt states they are. SW asked pt if her children would be upset if pt took her own life and pt states they would understand. Current Suicidal thoughts/plans/ideations: Pt denied any current suicidal thoughts/plans/ideations at this time as pt states her pain is currently being well controlled. Pt states there is nothing at home to kill myself with. Coping Skills: Pt states she likes to read, do Crossroads puzzles, watch the [employer] news at 6:00pm. Pt states that she does also like Spiritism and went to Spiritism recently with her daughter. Pt states she liked [employer] but he has passed and pt doesn't like the new [employer] so she will not be going back to Spiritism. SW asked pt what she can to cope with the pain if her pain gets bad again and pt states take Morphine. Triggering Events: SW spoke with pt about events that lead up to pt having suicidal thoughts and how pain seems to be triggering event for pt. Pt confirms this. Substance Abuse Hx: Pt admits to drinking one glass of Red Wine a day. Pt states you know drinking one glass of wine is good the heart. Pt states she will sit in her Lazy Boy Chair at night and drink her wine before she goes to sleep. SW spoke with pt about moderation in drinking. Counseling Services: SW spoke with pt about counseling resources and pt denied wanting any counseling resources. HCPOA: Pt states her daughter Pricila is her HCPOA and gave this worker permission to call her. SW left room and while this worker was leaving the room, pt's son Roger present at [facility] and stopped to speak to this worker. SW asked Roger if he knew about any Mental Health Hx with pt and if pt has ever planned to harm self. Roger states I think she is ready to , but I don't think she would hurt herself. PAWAN discussed case with Yane VALLECILLO and instructed to speak with Physician about possible psych placement. If psych placement is not pursued, SW to complete Safety plan with pt including having pt's daughter lock up pt's medications. [facility] did speak with pt. PAWAN spoke with Cy Kohli with Palliative/Hospice. Pt doesn't qualify for Hospice Services but can qualify for Palliative Care but not for back pain. Pt will need to follow up with Pain Management/Specialist for back pain. PAWAN updated Physician. Sarai VALLECILLO to speak with pt later today/evening to further assist with pt. At this time, pt's pain is being well controlled and pt is denying any current suicidal thoughts/plans/ideations. However, pt did admit to this SW that when she took the Oxycodone and Valium yesterday it was an attempt to harm herself. Pt has significant risk factors in the fact that pt's pain has not been able to be controlled for the last week (until today) and pt admits that when her pain is not controlled, she has suicidal thoughts. Pt lives with family, but pt is alone for most of the time. Pt had suicidal plan five years ago. Pt states [employer] is a big part in her life but when questioned if it is a sin in voodoo to take own's life pt stated to this worker that she was willing to take that risk. Sarai VALLECILLO to continue to assist with pt. PAWAN to continue to follow. RN and napper tender updated. Gabriela Singleton ENT NURSE, BANKING SERVICES ADVISOR
--- NOTE | 2021-02-11 18:45 | CASEMGMT ---
SW Note Reason for Referral: Suicidal Ideation Referral Source: MS3 automotive tire worker Compliant: SW asked to speak to delinquency prevention social worker. Patient said that she came to the hospital for pain and stated that she wanted morphine. Patient said this is the only place I can get morphine to get rid of the pain.. I have had no pain today. Patient reports that she took oxytocin and Valium last night and delinquency prevention social worker inquired if that was a suicide attempt and she said yes and I wanted to ... I thought it would work... I read about so many people overdosing on oxy but it didn't work for me. Patient was asked if she was safe in the room and patient said that she wanted to in her sleep so her children would not find a mess. SW asked patient about the belief that suicide is a sin and patient said I know it's a sin.. I was hoping he would forgive me and understand. Patient was asked again specifically if last night was an suicide attempt and she said yes. Patient said that besides taking the pills she almost drank cough syrup too but I wasn't sure what it would do. Patient said that 5 years ago that she had a plan, regarding suicide, that she would hook a hose to the car [place] and put it in the back window to car and sleep away and it would be wonderful but you can't do that anymore because of the catalytic converter. SW noted that patient appears to research methods to and she said yes. Patient voiced I thought I did everything right in life.. and other than my marriage I did everything perfectly. Patient said if there was a Dr. Tse here I would be the first one in his seat . Patient voiced she wanted to . Patient voiced that her pain is currently controlled. Risk Marital Status: Patient reports that she was , and now . Patient said that she had her because I was not responsive for his decisions. Patient said that she has 4 beautiful children. One child resides in [place] and is coming to visit tomorrow, patient resides with her daughter and patients other children reside 1- 1 1/2 miles away. Living Situation: Patient resides in [facility] in a Condo with her daughter Support/Resources: Patient said that her 4 children are her support as well as prayer people from her jainism. : Denied Education: Patient graduated from high school and had a [employer] degree which was a Professional Client Technical Support Associate degree. 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 Patient said that she was proud of her work for her [employer] and jainism. Patient was also president of [employer]. Mental Health Treatment: Patient reports no psychiatric meds, no psychiatric treatment or counseling and no inpatient psych treatment. Triggers/Stressors: Pain they can't figure it out.. I am filled with pain Coping Skills: Patient was asked how she nargis and she said not well.. I hate it.. I have never dealt with pain and I am not sure how to handle it. Patient said that previously she had drank 1 glass of wine at night that was good for my heart and it relaxes me. Patient said that she has not drank wine since prescribed pain meds on 02/02/21. Abuse: Patient denied any abuse or neglect Substance Abuse: Patient denied drug use. Risk to Self and Others Suicidal: Patient was asked if she wants to now and she said yes. Patient reports there is no respite.. no peace.. I have 3 siblings and my dad waiting for me.. and my dad. Patient reports her use of pills last night was an suicide attempt. Patient reports no prior suicide attempt. Homicide: No Violence: No SW asked patient her current mood and she said waiting. Mental Status Exam: Orientation x4 Memory: Good Appearance: Wearing hospital gown and sweater. She was clean and appropriate Mood and Affect: Depressed with flat affect Communication Pattern: Responds to questions Thought Process: Appropriate. No evidence of AH/VH General Intellectual Functioning: Average/Above Average Of note, patient told the casemanager that her plans after hospital stay are I hope to get on morphine and just . Plan: Patient voices that she wants to and reports that she has researched plans. She reports that she wants to in her sleep as to not have mess for her family. She voices that she is aware that suicide is a sin but I was hoping he would forgive me and understand. Patient admits that last nights overdose on pills was a suicide attempt. Thus, to ensure patient's safety and welfare she needs inpatient psychiatric hospitalization for stabilization and med management. Plan: Inpatient psych Sarai [facility]
--- NOTE | 2021-02-11 19:41 | EKG12_ITS ---
Test Reason : PLACEMENT Blood Pressure : / mmHG Vent. Rate : 099 BPM Atrial Rate : 098 BPM P-R Int : 000 ms QRS Dur : 126 ms QT Int : 364 ms P-R-T Axes : 000 -68 096 degrees QTc Int : 467 ms Atrial fibrillation Left axis deviation Non-specific intra-ventricular conduction block Abnormal ECG When compared with ECG of 02-FEB-2021 07:35, No significant change was found Confirmed by CORINA VALDOVINOS, DESHAUN ([id number]), editorial project manager AKBAR WHALEN ([id number]) on 02/15/2021 1:17:51 PM Referred By: ROBERT Confirmed By:DESHAUN ARRIAGA MD
--- NOTE | 2021-02-11 19:52 | CM.ED ---
Addendum entered by Sarai Mancuso 02/11/21 23:51: PAWAN Update Per Ary from [facility] patient was acepted. Accepting MD is Dr. Miller. RN to RN is [phone]. Patient will go to Room 305. PAWAN called misael Mcnulty's daughter. Rang without any voice mail on cell phone and home number. PAWAN called Roger Nathan, the patient's son. He was updated about discharge plan. He was advised of contact information and name of [facility]. All his questions were answered. No further questions or concerns voiced. Plan: [facility] Sarai MODI Original Note: PAWAN met with patient and completed assessment. PAWAN spoke to meter repairer helper. Patient is on precautions. PAWAN spoke to MD and inquired if patient is medically ready for discharge and he said yes. Plan: Inpatient psych [facility]
[2021-02-11 21:27] LABS: Bacteria 0 SEEN /hpf (None Seen); Mucous, Urine 0 SEEN /hpf (<or=2+); Red Blood Cells-Urine 0 SEEN /hpf (0-5); Squamous Epithelial Cells - UA 0 SEEN /hpf (5-10); White Blood Cells 0 SEEN /hpf (0-5)
[2021-02-11 21:28] LABS: Color, Urine Yellow (Yellow); Glucose, Dipstick Normal (Normal); Ketone-Dipstick Negative (Negative); Leukocyte Esterase-Dipstick Negative /ul (Negative); Nitrite-Dipstick Negative (Negative); Occult Blood-Urine Negative /ul (Negative); Protein-Dipstick Negative (Negative); Specific Gravity, Urine 1.015 (1.002-1.030); Urine Bilirubin Dipstick Negative (Negative); Urine Clarity Clear (Clear); Urine Urobilinogen Normal (Normal)
[2021-02-11 21:48] LABS: Amphetamine Urine VISTA NEGATIVE (<1000 ng/mL); Barbiturate Urine VISTA NEGATIVE (< 200 ng/mL); Benzodiazepine Urine VISTA POSITIVE (< 200 ng/mL); Cocaine Urine VISTA NEGATIVE (< 300 ng/mL); Ecstacy Urine VISTA NEGATIVE (< 500 ng/mL); Methadone Urine VISTA NEGATIVE (< 300 ng/mL); PCP Urine VISTA NEGATIVE (< 25 ng/mL); THC Urine VISTA NEGATIVE (< 50 ng/mL); Vista UDS pH Range 7
--- NOTE | 2021-02-11 22:53 | CM.ED ---
Jason Note JASON called Ashley at [facility]. JASON made referral to [facility]. JASON faxed referral information. JASON will be available. Plan: Inpatient Psych [facility]
--- NOTE | 2021-02-12 01:15 | DCINST_ITS ---
Discharge Instructions Diet Discharge Diet: No restrictions Activity Weight Bearing Status: Full weight bearing Lifting Restrictions: no lifting more than 10 pounds Dressing / Incision Call your doctor if you observe: Numbness or Tingling and Uncontrolled pain Follow Up Care Test Results: Test results from this visit will be discussed in further detail at your follow-up appointment, if applicable. Discharge Plan Admission Admit Date/Time: 02/10/21 21:39 Primary Reason for Your Visit: Overdose Attending Provider: Torri Castañeda Primary Care Provider: Juhi Pope NP Consulting Providers: Becky Warner ; Rodrick Harkins ; Ann Marie Garner ; Mimi Kohli ; Carla Amado ; Hailey Strange ALLERGY AND IMMUNOLOGY SPECIALIST Instructions Patient Instructions: ED Chest Pain, Noncardiac Discharge Orders/Prescriptions Prescriptions: No Action multivitamin [Daily Multiple] 1 EACH tablet 1 ea PO DAILY RF: 0 albuterol sulfate 2.5 MG/3 ML solution for nebulization 2.5 mg inhalation Q4H PRN PRN (Reason: Sob &/Or Wheezing) RF: 0 triamterene-hydrochlorothiazid 1 CAP capsule 1 cap PO DAILY RF: 0 flaxseed oil 1,000 MG capsule 1,000 mg PO DAILY RF: 0 magnesium 250 MG tablet 500 mg PO DAILY RF: 0 furosemide 20 MG tablet 20 mg PO PRN PRN (Reason: edema) RF: 0 losartan 100 MG tablet 1 tab PO DAILY RF: 0 Flovent HFA 12 GM HFA aerosol inhaler 2 puff inhalation DAILY RF: 0 potassium chloride 10 MEQ tablet 2 tab PO DAILY RF: 0 Fish Oil 1 EACH capsule 1 ea PO DAILY RF: 0 calcium carbonate-vitamin D3 1 EACH tablet 2 ea PO DAILY RF: 0 prednisone 10 mg Tablet 10 mg PO DAILY RF: 0 cetirizine [Zyrtec] 10 mg Tablet 10 mg PO DAILY RF: 0 aspirin 81 mg Tablet 81 mg PO DAILY RF: 0 coenzyme Q10 [Co Q-10] 100 mg Capsule 100 mg PO DAILY RF: 0 diazepam [Valium] 5 mg tablet 5 mg PO TID PRN (Reason: muscle spasm) 5 Days Qty: 15 RF: 0 oxycodone-acetaminophen [Percocet] 5-325 mg tablet 1 tab PO Q6H PRN (Reason: breakthrough pain) 3 Days Qty: 12 RF: 0 Referrals / Follow Up: Juhi Pope ALLERGY AND IMMUNOLOGY SPECIALIST, ALLERGY AND IMMUNOLOGY SPECIALIST-C [Primary Care Provider] - Disposition Disposition (needs filled in before D/C Order can be placed): Psychiatric Hospital or Unit
[2021-02-12 02:30] VITALS: BP 106/54; PULSE 78; RESP 16; TEMP 36.6; O2SAT 94
--- NOTE | 2021-02-12 02:38 | NURSING ---
Report called to Hannah at [facility] [place] at 0232.
[2021-02-12 04:50] VITALS: BP 102/61; PULSE 72; RESP 16; TEMP 36.6; O2SAT 97
--- NOTE | 2021-02-12 05:02 | NURSING ---
called an update on Hannah CANALES at [facility] regarding pt Transport just got here to pick pt up. pt stable and belongings sent w/ pt.
--- NOTE | 2021-02-12 19:11 | PCM.DC.SUM ---
Providers Date of Admission: 02/10/21 Primary Care Physician: MAURIZIO Trejo Consultations 02/11/21 00:22 Consult: Hospice / Palliative Care Routine Consulting Provider: [facility] Reason for Consult: pain management EMERGENT Consult: No MD Notified: Yes Date Notified: 02/11/21 Time Notified: 09:20 Method of Notification: Answering Service Reason For Visit: INTRACTABLE BACK PAIN Diagnosis Discharge Diagnosis (1) Acute back pain: Status: Acute Code(s): M54.9 - Dorsalgia, unspecified Qualifiers: Back pain location: thoracic back pain Back pain laterality: bilateral Qualified Code(s): M54.6 - Pain in thoracic spine (2) Debility, unspecified: Status: Acute Code(s): R53.81 - Other malaise (3) Drug induced constipation: Status: Acute Code(s): K59.03 - Drug induced constipation Medications at Discharge Home Medications albuterol sulfate 2.5 mg INHALATION Q4H PRN PRN 10/26/18 calcium carbonate-vitamin D3 2 ea PO DAILY 10/26/18 flaxseed oil 1,000 mg PO DAILY 10/26/18 fluticasone propionate [Flovent Hfa] 2 puff INHALATION DAILY 10/26/18 furosemide 20 mg PO PRN PRN 10/26/18 losartan 1 tab PO DAILY 10/26/18 magnesium 500 mg PO DAILY 10/26/18 multivitamin [Daily Multiple Vitamin] 1 ea PO DAILY 10/26/18 omega-3 fatty acids-fish oil [Fish Oil 1,000 mg Capsule] 1 ea PO DAILY 10/26/18 potassium chloride 2 tab PO DAILY 10/26/18 triamterene-hydrochlorothiazid 1 cap PO DAILY 10/26/18 aspirin 81 mg PO DAILY 02/02/21 cetirizine [Zyrtec] 10 mg PO DAILY 02/02/21 coenzyme Q10 [Co Q-10] 100 mg PO DAILY 02/02/21 prednisone 10 mg PO DAILY 02/02/21 diazepam [Valium] 5 mg PO TID PRN 5 Days #15 tab 02/07/21 oxycodone-acetaminophen [Percocet] 1 tab PO Q6H PRN 3 Days #12 tab 02/07/21 Hospital Course Operations None Procedures None Summary of Care Provided Minutes Spent on Discharge: 40 Hospital Course: Patient is an 85-year-old female with a past medical history as outlined was admitted through the ED on 02/10/2021 with a complaint of intractable back pain. She had been seen in the ED about 3 times over the 2 weeks prior to admission for continued back pain. She was given oxycodone during periods ER visits and discharged home. Chest x-ray and CTA of the chest done from previous admissions were negative for any acute findings. Family therefore brought her in due to intractable back pain she was admitted and managed for intractable back pain. Pain did improve during admission. Patient however expresses Lennie ideation and says she just wanted to take some pills and . Based on this, mental crisis team was consulted. Palliative care was also consulted during this admission. Patient was deemed as need an inpatient psychiatric admission and was pink slipped. She works accepted to an inpatient psych facility and discharged on 02/12/2021. Patient seen and examined prior to discharge. She had no complaints and felt well. Review of systems otherwise negative. Labs and vitals reviewed. Home medication reviewed and reconciled. Physical Exam Const alert, oriented x3 and no apparent distress General Appearance: cooperative and lethargic Exam Limitations: no limitations HEENT normocephalic, head/scalp atraumatic and moist oral mucous membranes Eyes PERRL, EOMs intact bilaterally, conjunctivae normal and no scleral icterus Neck no lymphadenopathy, supple and no JVD General: trachea midline Lymph Lymphatic: no lymphadenopathy noted Resp normal respiratory effort, normal air movement, no retractions, no use of accessory muscles and clear to auscultation bilaterally Cardio regular rate, regular rhythm, S1 normal heart sound, S2 normal heart sound and no murmurs Peripheral Pulses: pulses 2+ throughout GI normal to inspection, nondistended, normoactive bowel sounds, soft to palpation, non-tender and non-distended Extremity normal to inspection, full ROM, normal capillary refill and no clubbing, cyanosis or edema Extremity Narrative: Back pain to left posterior thoracic rib cage, reproducible with palpation Skin no rashes or lesions noted General Skin Exam: no breakdown and turgor normal Lesions: no lesions Rashes: no rashes Neuro oriented x3, no focal motor deficits and no sensory deficits noted Sensorium / Orientation: awake and alert Speech: Negative for speech normal Motor Exam: Negative for general weakness Psych thought process normal, cooperative and affect normal Appearance: appropriate Weight / BMI Weight Weight: 138 lb Body Mass Index (BMI) 24.4 ABG / Lab / Microbiology Data Result Diagrams: 02/11/21 06:16 02/11/21 06:16 Laboratory: Laboratory Results - last 24 hr 02/11/21 21:20: Urine Color Yellow, Urine Clarity Clear, Urine pH 8.0, Ur Specific [place] 1.015, Urine Protein Negative, Urine Glucose (UA) Normal, Urine Ketones Negative, Urine Occult Blood Negative, Urine Nitrite Negative, Urine Bilirubin Negative, Urine Urobilinogen Normal, Ur Leukocyte Esterase Negative, Urine RBC 0 SEEN, Urine WBC 0 SEEN, Ur Squamous Epith Cells 0 SEEN, Urine Bacteria 0 SEEN, Urine Mucus 0 SEEN 02/11/21 21:20: Urine Opiates Screen POSITIVE H, Urine Methadone Screen NEGATIVE, Ur Barbiturates Screen NEGATIVE, Ur Phencyclidine Scrn NEGATIVE, Ur Amphetamines Screen NEGATIVE, U Methamphetamin-MDMA NEGATIVE, U Benzodiazepines Scrn POSITIVE H, Urine Cocaine Screen NEGATIVE, U Cannabinoids Screen NEGATIVE, Ur Drug Screen Comment Microbiology: Microbiology 02/11/21 20:20 Mucosa - Nose SARS-CoV-2 Antigen (Rapid) - Final D/C Instructions Discharge Diet: No restrictions Weight Bearing Status: Full weight bearing Call your doctor if you observe: Numbness or Tingling and Uncontrolled pain Meaningful Use Info Meaningful Use Diagnoses (Choose all that apply): None applicable Discharge Plan Admission Admit Date/Time: 02/10/21 21:39 Primary Reason for Your Visit: Overdose Attending Provider: Torri Castañeda Primary Care Provider: Juhi Pope NP Consulting Providers: Becky Warner ; Rodrick Harkins ; Ann Marie Garner ; Grace Kohli ; Carla Amado ; Hailey Strange BOILER SHOP SUPERVISOR Instructions Patient Instructions: ED Chest Pain, Noncardiac Discharge Orders/Prescriptions Prescriptions: No Action multivitamin [Daily Multiple] 1 EACH tablet 1 ea PO DAILY RF: 0 albuterol sulfate 2.5 MG/3 ML solution for nebulization 2.5 mg inhalation Q4H PRN PRN (Reason: Sob &/Or Wheezing) RF: 0 triamterene-hydrochlorothiazid 1 CAP capsule 1 cap PO DAILY RF: 0 flaxseed oil 1,000 MG capsule 1,000 mg PO DAILY RF: 0 magnesium 250 MG tablet 500 mg PO DAILY RF: 0 furosemide 20 MG tablet 20 mg PO PRN PRN (Reason: edema) RF: 0 losartan 100 MG tablet 1 tab PO DAILY RF: 0 Flovent HFA 12 GM HFA aerosol inhaler 2 puff inhalation DAILY RF: 0 potassium chloride 10 MEQ tablet 2 tab PO DAILY RF: 0 Fish Oil 1 EACH capsule 1 ea PO DAILY RF: 0 calcium carbonate-vitamin D3 1 EACH tablet 2 ea PO DAILY RF: 0 prednisone 10 mg Tablet 10 mg PO DAILY RF: 0 cetirizine [Zyrtec] 10 mg Tablet 10 mg PO DAILY RF: 0 aspirin 81 mg Tablet 81 mg PO DAILY RF: 0 coenzyme Q10 [Co Q-10] 100 mg Capsule 100 mg PO DAILY RF: 0 diazepam [Valium] 5 mg tablet 5 mg PO TID PRN (Reason: muscle spasm) 5 Days Qty: 15 RF: 0 oxycodone-acetaminophen [Percocet] 5-325 mg tablet 1 tab PO Q6H PRN (Reason: breakthrough pain) 3 Days Qty: 12 RF: 0 Referrals / Follow Up: Juhi Pope BOILER SHOP SUPERVISOR, BOILER SHOP SUPERVISOR-C [Primary Care Provider] - Disposition Disposition (needs filled in before D/C Order can be placed): Psychiatric Hospital or Unit Charges/Coding Visit Charges OBSV E&M: 19354 Observation care discharge
== END 2021-02-12 05:15 ==
LOC: ED 17:40 → MS3 21:44
PROVIDERS: Nurse Practitioner Family; Admitting Provider Hospitalist; Emergency Provider Emergency Medicine; PCP Nurse Practitioner Family; Visit Provider Student in an Organized Health Care Education/Training Program
DX: M54.6 Pain in thoracic spine (principal); K59.03 Drug induced constipation; I48.91 Unspecified atrial fibrillation; J44.9 Chronic obstructive pulmonary disease, unspecified; S51.812A Laceration without foreign body of left forearm, initial encounter; W19.XXXA Unspecified fall, initial encounter; R07.89 Other chest pain; R45.851 Suicidal ideations; I13.0 Hypertensive heart and chronic kidney disease with heart failure and stage 1 through stage 4 chronic kidney disease, or unspecified chronic kidney disease; I50.9 Heart failure, unspecified; N18.32 Chronic kidney disease, stage 3b; B19.10 Unspecified viral hepatitis B without hepatic coma; Z95.3 Presence of xenogenic heart valve; E87.6 Hypokalemia; Z91.81 History of falling; Y93.9 Activity, unspecified; Y92.9 Unspecified place or not applicable; Z79.899 Other long term (current) drug therapy; Z79.82 Long term (current) use of aspirin; Z79.52 Long term (current) use of systemic steroids; Z87.891 Personal history of nicotine dependence
CPT/HCPCS: 36415; 72072; 72100; 80053; 80307; 81001; 83735; 85025; 87426; 93005; 94640; 96374; 96375; 96376; 97162; 97166; 97802; 99218; 99284; A4216; G0378; J2405

== ENCOUNTER 2021-03-04 18:02 | Emergency (ER) | payer MEDICARE, OTHER, SELFPAY ==
[2021-03-04 18:03] VITALS: BP 104/55; PULSE 109; RESP 14; TEMP 36.8; O2SAT 96; BMI 47.2
--- NOTE | 2021-03-04 18:51 | EKG12_ITS ---
Test Reason : SOB Blood Pressure : / mmHG Vent. Rate : 094 BPM Atrial Rate : 091 BPM P-R Int : 000 ms QRS Dur : 120 ms QT Int : 366 ms P-R-T Axes : 000 -58 057 degrees QTc Int : 457 ms Atrial fibrillation with premature ventricular or aberrantly conducted complexes Left axis deviation Right bundle branch block Septal infarct , age undetermined Abnormal ECG Confirmed by MAY VALDOVINOS, GT ([id number]), outsole cutter machine AKBAR WHALEN ([id number]) on 03/08/2021 11:44:56 AM Referred By: OFELIA Confirmed By:GT OLVERA MD
[2021-03-04] MEDS: Ondansetron 4 MG/2 ML Vial IV (19:31)
[2021-03-04] MEDS: Morphine 4 MG/ML Syringe IV ×2 (19:31→21:41)
--- NOTE | 2021-03-04 19:39 | RAD_ITS ---
INDICATION: chest pain EXAMINATION/TECHNIQUE: X-RAY - XR Chest 2 Views COMPARISON: 02/02/2021. FINDINGS: Chronic lung changes. Sternal cerclage wires and vascular clips are present from a prior sternotomy and coronary artery bypass graft procedure (CABG). Extremely tortuous and dilated thoracic aorta. The heart is mildly enlarged. No pleural effusion or pneumothorax. No acute osseous abnormalities. RAD/Chest PA and Lateral IMPRESSION: No acute radiographic abnormalities. COPD. Thoracic aortic aneurysm, better characterized on recent CTA chest 02/02/2021. Electronically Signed: Matt Jeffries MD at 20:23 EDT Tel , Service support ,
[2021-03-04 19:59] LABS: Absolute Lymphocyte Count 0.46 X10^3/uL (0.83-4.51); Absolute Neutrophil Count 6.2 X10^3/uL (2.0-7.7); Basophil# 0.02 X10^3/uL; Basophil% 0.3 % (0-1); Hematocrit 30.6 % (37-47); Hemoglobin 10.6 g/dL (12.0-15.0); Lymphocyte # 0.46 X10^3/ul (0.83-4.51); Lymphocyte % 6.2 % (19-41); Mean Corp Hgb Conc 34.6 g/dL (32-36); Mean Corpuscular Hgb 33.1 pg (27.0-32.0); Mean Corpuscular Volume 95.6 fL (81-99); Mean Platelet Vol. 10.7 fl (6.2-12.0); Monocyte# 0.62 X10^3/uL; Monocyte% 8.4 % (0-10); NRBC Flagged by Analyzer 0 % (0-5); Neutrophil # 6.18 X10^3/uL (2.7-7.7); Neutrophil % 83.6 % (47-70); POSITIVE DIFFERENTIAL YES; Platelet Count 306 K/mm3 (150-450); RBC Distribution Width CV 12.2 % (11.6-14.6); RBC Distribution Width SD 42.5 fl (35.1-43.9); White Blood Count 7.4 K/mm3 (4.4-11.0)
[2021-03-04 20:13] LABS: Differential Indicated SCAN CRITERIA MET
[2021-03-04 20:26] VITALS: O2SAT 97
[2021-03-04 20:29] LABS: Differential Comment SCANNED
--- NOTE | 2021-03-04 20:34 | ED.VIS.CHEST ---
HPI History of Present Illness Chief Complaint: Shortness of Breath Narrative Narrative: Patient presenting for evaluation secondary to chest pain. Patient has an underlying history of a past aortic dissection with repair and valve replacement. Patient chronically deals with chest pain, she states that it is also causing her some shortness of breath due to a feeling of inability to take in a deep breath. Patient's nurse practitioner states that on a chest x-ray she felt as if her aneurysm on her chest looks somewhat different so she recommended that she come to the emergency department. Patient states that in the past when she is in the ED she has received morphine for chest pain and feels that that improves it. Patient states that she wishes to potentially go on palliative care or hospice, but does not have a hospice diagnosis and has been unable to procure palliative care for her chronic chest pain. She states that morphine does tend to help, and I am 86 years old and I am not going to get hooked on narcotics. [facility] Medical History AAA (abdominal aortic aneurysm) Aortic dissection Asthma Atrial fibrillation Chronic pain Congestive heart failure (CHF) COPD (chronic obstructive pulmonary disease) Coronary artery disease Dissecting aneurysm of aorta Former smoker Hearing loss, left Hearing loss, right Hepatitis Hypertension Renal insufficiency TIA (transient ischemic attack) Home Medications albuterol sulfate 2.5 mg INHALATION Q4H PRN PRN 10/26/18 [History Last Taken Unknown] calcium carbonate-vitamin D3 2 ea PO DAILY 10/26/18 [History Last Taken Unknown] flaxseed oil 1,000 mg PO DAILY 10/26/18 [History Last Taken Unknown] fluticasone propionate [Flovent Hfa] 2 puff INHALATION DAILY 10/26/18 [History Last Taken Unknown] furosemide 20 mg PO PRN PRN 10/26/18 [History Last Taken Unknown] losartan 1 tab PO DAILY 10/26/18 [History Last Taken Unknown] magnesium 500 mg PO DAILY 10/26/18 [History Last Taken Unknown] multivitamin [Daily Multiple Vitamin] 1 ea PO DAILY 10/26/18 [History Last Taken Unknown] omega-3 fatty acids-fish oil [Fish Oil 1,000 mg Capsule] 1 ea PO DAILY 10/26/18 [History Last Taken Unknown] potassium chloride 2 tab PO DAILY 10/26/18 [History Last Taken Unknown] triamterene-hydrochlorothiazid 1 cap PO DAILY 10/26/18 [History Last Taken Unknown] aspirin 81 mg PO DAILY 02/02/21 [History Last Taken Unknown] cetirizine [Zyrtec] 10 mg PO DAILY 02/02/21 [History Last Taken Unknown] coenzyme Q10 [Co Q-10] 100 mg PO DAILY 02/02/21 [History Last Taken Unknown] prednisone 10 mg PO DAILY 02/02/21 [History Last Taken Unknown] diazepam [Valium] 5 mg PO TID PRN 5 Days #15 tab 02/07/21 [Rx Last Taken Unknown] oxycodone-acetaminophen [Percocet] 1 tab PO Q6H PRN 3 Days #12 tab 02/07/21 [Rx Last Taken Unknown] morphine 15 mg PO TID PRN 3 Days #9 tab 03/04/21 [Rx Last Taken Unknown] Allergy/AdvReac Type Severity Reaction Status Date / Time atenolol Allergy Unknown Verified 03/04/21 18:03 cephalexin [From Keflex] Allergy Unknown Verified 03/04/21 18:03 ciprofloxacin [From Cipro] Allergy Unknown Verified 03/04/21 18:03 fluticasone Allergy Hives Verified 03/04/21 18:03 [From Advair Diskus] Penicillins [PCN] Allergy Unknown Verified 03/04/21 18:03 salmeterol Allergy Hives Verified 03/04/21 18:03 [From Advair Diskus] Surgical History History of aortic valve replacement with porcine valve Social History Smoking Status: Former smoker alcohol intake: current alcohol intake frequency: 0-2 drinks per day Alcohol type: wine details: 1 glass of wine per evening ROS ROS ED Constitutional Constitutional ED: Denies fever(s) Eyes Eyes: Denies change in vision ENT ENT ED: Denies rhinorrhea or sore throat Cardiovascular Cardiovascular: Reports as per HPI Respiratory/Chest Respiratory/Chest: Reports dyspnea Gastrointestinal Gastrointestinal: Denies abdominal pain, nausea or vomiting Genitourinary Genitourinary ED: Denies dysuria Musculoskeletal Musculoskeletal: Denies myalgias or neck pain Integumentary Denies rash Neurologic Neurologic: Denies headache(s), paresthesias or weakness Psychiatric Psychiatric: Denies depression Endocrine Endocrinology: Denies polydipsia or polyuria Hematologic/Lymphatic Hematologic/Lymphatic: Denies easy bleeding or easy bruising Allergic/Immunologic Allergic/Immunologic ED: Denies urticaria EXAM Physical Exam Const Vital Signs: 03/04/21 18:03 03/04/21 20:26 Temperature 98.3 F Temperature Source Temporal Pulse Rate 109 H Respiratory Rate 14 Respiratory Effort Normal Non-Labored Respiratory Depth Normal Respiratory Pattern Normal Blood Pressure 104/55 L Blood Pressure Mean 71 Pulse Ox 96 97 Oxygen Delivery Method Room Air Positive well nourished and well developed General Appearance ED: well developed and NAD HEENT Reports moist mucous membranes normocephalic and atraumatic Eyes EOMs intact bilaterally Neck no lymphadenopathy, supple and no JVD Chest Wall inspection of chest normal and palpation of chest normal Chest Narrative: No evidence of vesicular rash Resp normal respiratory effort and clear to auscultation bilaterally Auscultation: Negative for rales, rhonchi or wheezes Cardio regular rate, S1 normal heart sound and S2 normal heart sound Rate: other Other Details: 3 out of 6 systolic murmur, irregular rhythm Peripheral Pulses: radial pulses present and posterior tibial pulses present GI normal to inspection, nondistended, normoactive bowel sounds, soft to palpation and non-tender Extremity normal to inspection Extremity Narrative: Calves are supple no palpable cord General Extremety ED: Yes edema; Negative for tenderness General Extremity: edema Neuro oriented x3 and no sensory deficits noted Sensorium / Orientation: awake and alert Psych mental status grossly normal Skin no rashes or lesions noted MDM MDM MDM Narrative Medical decision making narrative: Patient presented secondary to chest pain. EKG demonstrates no acute changes. Chest x-ray by my personal review shows no acute pathology per radiology as well. CBC demonstrates a hemoglobin at 10.6, chemistry does show some hyponatremia at 125 which appears to be a chronic issue for the patient creatinine is 1.4 which is baseline.. Troponin was found to be elevated in the 80s. Patient continues to complain of chest pain on repeat evaluation after she was administered morphine. Patient is DNR comfort care, she has had consultation with hospice in the past, but reported that she was unable to get hospice because she did not have a end-of-life diagnosis. Patient at this point has persistent chest pain with an elevated cardiac troponin, and potentially has an element of some of stable angina. She is alert and oriented able to make her own decisions states that she wishes to continue be to be DNR comfort care and does not want anything done for this other than pain management. I discussed this with hospitalist who does agree to reevaluate the patient tomorrow. Patient's will be discharged with a course of oral morphine at her request. Daughter informs me that the patient actually is supposed to go to a [facility] tomorrow for a short period of respite care as she and her family members who care for the patient are to be going on vacation. Patient was discharged with outpatient referral to hospice Lab Data Labs: Laboratory Results - last 24 hr 03/04/21 03/04/21 19:32 20:10 WBC 7.4 RBC 3.20 L Hgb 10.6 L Hct 30.6 L MCV 95.6 MCH 33.1 H MCHC 34.6 RDW Std Deviation 42.5 RDW Coeff of Carmen 12.2 Plt Count 306 MPV 10.7 Immature Gran % (Auto) 1.500 H Neut % (Auto) 83.6 H Lymph % (Auto) 6.2 L [place] % (Auto) 8.4 Eos % (Auto) 0.0 Baso % (Auto) 0.3 Absolute Neuts (auto) 6.2 Absolute Lymphs (auto) 0.46 L Nucleated RBC % 0 Differential Comment SCANNED Sodium 125 L Potassium 4.1 Chloride 89 L Carbon Dioxide 30.0 Anion Gap 6 BUN 55 H Creatinine 1.43 H Estim Creat Clear Calc 25.29 Est GFR (MDRD) Af Amer 45 L Est GFR (MDRD) Non-Af 37 L BUN/Creatinine Ratio 38.5 H Glucose 114 H Calcium 8.7 Troponin I High Sens 87 H Radiography Chest X-Ray - ED: Read by ED Physician and Chronic Changes Diagnostic Testing: Radiology Impression Chest X-Ray 03/04/21 19:39 IMPRESSION: No acute radiographic abnormalities. COPD. Thoracic aortic aneurysm, better characterized on recent CTA chest 02/02/2021. Electronically Signed: Matt Jeffries MD at 20:23 EDT Tel , Service support , EKG Initial EKG: Attestation: I personally reviewed and interpreted this EKG as follows: (Atrial fibrillation with occasional PVCs noted. No evidence of pathologic ST segment deviation left axis deviation with right bundle branch block are noted.) Discharge Plan Triage Chief Complaint: Shortness of Breath Other Complaint: Cough ED Provider: Jose Cage Dx/Rx/DC Orders Clinical Impression: Angina pectoris, unstable Instructions: Starting Hospice Prescriptions: New morphine 15 mg tablet 15 mg PO TID PRN (Reason: pain) 3 Days Qty: 9 RF: 0 No Action multivitamin [Daily Multiple] 1 EACH tablet 1 ea PO DAILY RF: 0 albuterol sulfate 2.5 MG/3 ML solution for nebulization 2.5 mg inhalation Q4H PRN PRN (Reason: Sob &/Or Wheezing) RF: 0 triamterene-hydrochlorothiazid 1 CAP capsule 1 cap PO DAILY RF: 0 flaxseed oil 1,000 MG capsule 1,000 mg PO DAILY RF: 0 magnesium 250 MG tablet 500 mg PO DAILY RF: 0 furosemide 20 MG tablet 20 mg PO PRN PRN (Reason: edema) RF: 0 losartan 100 MG tablet 1 tab PO DAILY RF: 0 Flovent HFA 12 GM HFA aerosol inhaler 2 puff inhalation DAILY RF: 0 potassium chloride 10 MEQ tablet 2 tab PO DAILY RF: 0 Fish Oil 1 EACH capsule 1 ea PO DAILY RF: 0 calcium carbonate-vitamin D3 1 EACH tablet 2 ea PO DAILY RF: 0 prednisone 10 mg Tablet 10 mg PO DAILY RF: 0 cetirizine [Zyrtec] 10 mg Tablet 10 mg PO DAILY RF: 0 aspirin 81 mg Tablet 81 mg PO DAILY RF: 0 coenzyme Q10 [Co Q-10] 100 mg Capsule 100 mg PO DAILY RF: 0 diazepam [Valium] 5 mg tablet 5 mg PO TID PRN (Reason: muscle spasm) 5 Days Qty: 15 RF: 0 oxycodone-acetaminophen [Percocet] 5-325 mg tablet 1 tab PO Q6H PRN (Reason: breakthrough pain) 3 Days Qty: 12 RF: 0 Primary Care Provider: Juhi Pope NP Referrals: Juhi Pope NP, [employer] [Primary Care Provider] - Activity Restrictions/Additional Instructions: Follow-up tomorrow with hospice care Disposition Disposition: Home, Self Care
[2021-03-04 20:36] LABS: Anion Gap 6 (5-15); BUN 55 mg/dL (7-18); BUN/Creat Ratio 38.5 RATIO (10-20); Calcium,Total 8.7 mg/dL (8.5-10.1); Chloride 89 mmol/L (98-107); Creatinine, Serum 1.43 mg/dL (0.55-1.02); EST Glomerular Filtration Rate 37 mL/min (>60); Est Glom Filt Rate - Afr Amer 45 mL/min (>60); Estimated Creatinine Clearance 25.29 ml/min; Glucose 114 mg/dL (74-106); Potassium 4.1 mmol/L (3.5-5.1); Sodium Level 125 mmol/L (136-145); Troponin-I HS 87 pg/mL (3.0-54.0)
[2021-03-04 22:08] VITALS: BP 121/74; PULSE 98; RESP 15; TEMP 36.8; O2SAT 95
[2021-03-04 22:13] VITALS: BP 121/74; PULSE 98; RESP 15; O2SAT 95
== END 2021-03-04 22:15 | disposition home or self-care (01) ==
PROVIDERS: Emergency Provider Emergency Medicine; PCP Nurse Practitioner Family
DX: I20.0 Unstable angina (principal); Z95.2 Presence of prosthetic heart valve; Z87.891 Personal history of nicotine dependence
CPT/HCPCS: 71046; 80048; 84484; 85025; 93005; 96374; 96375; 96376; 99285; A4216; J2405